=== PATIENT | female | born 1930 | race Caucasian/White ===

== ENCOUNTER 2017-01-06 09:51 | Emergency (ER) | payer MEDICARE, OTHER ==
[~2017-01-06] VITALS: Ht 170.2 cm; Wt 60.5 kg
[~2017-01-06 09:51] MED LIST: ACET-171 PO; ASCO500T8 PO; ASPI-973 PO; Atorvastatin PO; CARV12.5 PO; CYCL1DRO BOTH_EYES; DABI150C PO; DIGO125T73 PO; FERR324T2 PO; FURO40TA4 PO; GLPZ5T PO; LISI-567 PO; LOPE2TAB7 PO; MAGN400T4 PO; METF500T4 PO; OMEP-113 PO; SPIR25TA3 PO
[2017-01-06 09:57] VITALS: BP 143/50; PULSE 85; RESP 18; O2SAT 93
--- NOTE | 2017-01-06 09:59 | ED.REPORT ---
HPI-Trauma Minor / Fall Date of Service Jan 06, 2017 ED Provider: MD Costa This is an 86 year old female with a history of a-fib, on Pradaxa, CHF, COPD, DM , MO, HTN, s/p cardiac stent placement x2 presenting to the emergency department via EMS from [facility] due to GLF that occurred just prior to arrival. Staff report increased falls and decreased mobility recently. Today pt had a fall but was unable to ambulate due to weakness. Pt states she was on the floor for 20 minutes, states, "I don't have a lot of energy in my legs." Also reports R taylor pain. Denies headache, change LOC, dizziness, lightheadedness, abdominal pain, nausea, vomiting, dysuria, constipation or diarrhea. [employer] Worker: Dr. Santana. PCP: Dr. Magallanes. On further discussion with family members, pt has been increasingly more confused with decreased mobility in the last few months. She had one fall yesterday, these recent falls are abnormal. Son states pt was very weak this morning. Pt last ambulated at baseline 4 days ago. Nursing Notes Stated Complaint: GLF WEAKNESS Chief Complaint: Multiple Trauma/Fall Nursing Notes Reviewed: Yes Allergies: Coded Allergies: lorazepam (Verified Allergy, Intermediate, CONFUSION, 07/26/16) meperidine HCl (Verified Adverse Reaction, Unknown, Hallucinations, ) Scheduled Ascorbic Acid (Vitamin C) 500 Mg Capsule.er 500 MG PO DAILY Aspirin (Aspirin) 81 Mg Tablet 81 MG PO DAILY Atorvastatin Calcium (Atorvastatin Calcium) 40 Mg Tablet 40 MG PO DAILY Carvedilol (Carvedilol) 12.5 Mg Tablet 6.25 MG PO BID Cephalexin (Cephalexin) 500 Mg Tablet 500 MG PO TID Cyclosporine (Restasis) 1 Each Droperette 1 DROP BOTH_EYES BID Dabigatran Etexilate Mesylate (Pradaxa) 150 Mg Capsule 150 MG PO BID Digoxin (Digoxin) 125 Mcg Tablet 125 MCG PO DAILY Ferrous Sulfate (Ferrous Sulfate) 324 Mg Tablet.dr 324 MG PO DAILYWD Furosemide (Furosemide) 40 Mg Tablet 20 MG PO DAILY Glipizide (Glipizide) 5 Mg Tablet 5 MG PO BID Lisinopril (Lisinopril) 20 Mg Tablet 20 MG PO BID Magnesium Oxide (Magnesium Oxide) 400 Mg Tablet 800 MG PO BID Metformin (Metformin) 500 Mg Tablet 1,000 TABLET PO BID Omeprazole (Omeprazole) 20 Mg Capsule.dr 20 MG PO BID Spironolactone (Spironolactone) 25 Mg Tablet 12.5 MG PO DAILY Scheduled PRN Acetaminophen (Acetaminophen) 500 Mg Tablet 500-1,000 MG PO Q6 PRN PRN For Pain Loperamide HCl (Anti-Diarrheal) 2 Mg Tablet 2-4 MG PO PRN PRN PRN For Diarrhea or Loose Stool General Time Seen by MD: 09:59 Chief Complaint Fall Hx Obtained From: Patient Arrived By: Ambulance Symptom Duration: Since onset Severity: Current: Mild Pertinent Negative: Pt denies other symptoms Recent Healthcare: No recent doctor visit, No recent hospitalization Similar Sx Previous: No Risk Factors Head CT Imaging Patient Presents WITHOUT: Loss of Conciousness Past Medical History Past Medical History Afib with RVR CHF COPD Diabetes MO (~1999s) Reports: COPD, Congestive heart failure, Diabetes mellitus Past Surgical History Stents (x2) Smoking History Former Smoker Social History Alcohol Use: "Social" Drug Use: Denies drug use Ambulatory Status Wheelchair Review of Systems Constitutional: Denies: Chills, Fever Skin: Denies Diaphoresis Neurologic: Reports: Problem walking, Weakness, Denies: Change LOC, Confusion, Dizziness, Headache, Lightheaded, Numbness Complete sys rev & neg: except as marked. Physical Exam Initial Vital Signs Vital Signs (First) Date Time Temp Pulse Resp B/P Pulse Ox O2 Delivery O2 Flow Rate FiO2 01/06/17 09:57 36 85 18 143/50 93 Room Air 01/06/17 12:20 1 - Initial VS: Reviewed Head / Eyes: Atraumatic, Normocephalic, PERRL ENT: Mucous membranes moist, Conjunctiva normal, No scleral icterus Respiratory: Breath sounds normal, Clear to auscultation, No respiratory distress Abdomen / GI: Soft, Non-tender, No guarding, No rebound, No distention Skin: Warm, Dry, No cyanosis Neurologic: Alert, Oriented, Nonfocal Psychiatric: Mood/affect normal, Behavior normal, Normal thought content General/Constitutional: Awake Neck: Atraumatic, Supple, Full range of motion, No swelling, Non-tender, No midline vertebral tend Cardiovascular: Heart rate NL, Heart sounds NL, No gallop, No murmurs, No rubs Heart Rate / Rhythm: Positive: Irregular rhythm Lower Extremity / Pelvis / MS: Full range of motion, No deformity, Neurologic intact Superficial abrasion R lower leg, no purulence, no cellulitis. Hips FROM, non-tender Interpretation & Diagnostics Lab Results Interpretation Result Diagram: 01/06/17 0957 01/06/17 0957 Test 01/06/17 09:57 01/06/17 11:49 White Blood Count 9.1th/mm3 (3.8-10.1) Red Blood Count 4.14mil/mm3 (3.90-5.20) Hemoglobin 13.1g/dL (12.0-15.6) Hematocrit 37.9% (35.0-46.0) Mean Corpuscular Volume 91.5fL (81-100) Mean Corpuscular Hemoglobin 31.6pg (27.0-35.0) Mean Corpuscular Hemoglobin Concent 34.6% (32.0-37.0) Red Cell Distribution Width 12.1% (12.3-15.4) Platelet Count 222bil/L (150-400) Neutrophils (%) (Auto) 86.2% (40-74) Lymphocytes (%) (Auto) 5.1% (14-46) Monocytes (%) (Auto) 7.4% (4-12) Eosinophils (%) (Auto) 0.9% (0-5) Basophils (%) (Auto) 0.1% (0-3) Prothrombin Time 10.7sec (8.1-12.5) Prothromb Time International Ratio 1.00ratio Activated Partial Thromboplast Time 21.0sec (22.8-33.0) Sodium Level 137mEq/L (134-144) Potassium Level 4.3mEq/L (3.5-5.2) Chloride Level 95mEq/L (97-108) Carbon Dioxide Level 28mmol/L (18-29) Blood Urea Nitrogen 14mg/dL (8-27) Creatinine 0.61mg/dL (0.57-1.00) Estimat Glomerular Filtration Rate 133mL/min (>59) Glucose Level 285mg/dL (60-99) Calcium Level 9.5mg/dL (8.5-10.1) Total Bilirubin 0.7mg/dL (0.0-1.2) Aspartate Amino Transf (AST/SGOT) 22U/L (0-50) Alanine Aminotransferase (ALT/SGPT) 17U/L (0-32) Alkaline Phosphatase 53U/L (25-165) Total Protein 7.3g/dL (6.4-8.4) Albumin 4.0g/dL (3.4-5.0) Urine Color Straw (YELLOW) Urine Appearance Hazy (CLEAR,HAZY) Urine pH 5.0 (5.0-8.0) Urine Specific Raven 1.010 (1.003-1.035) Urine Protein Negativemg/dL (NEG,TRACE) Urine Glucose (UA) Negativemg/dL (NEGATIVE) Urine Ketones Negativemg/dL (NEGATIVE) Urine Occult Blood Negative (NEGATIVE) Urine Nitrite Negative (NEGATIVE) Urine Bilirubin Negative (NEGATIVE) Urine Urobilinogen Normalmg/dL (NORMAL) Urine Leukocyte Esterase Negative (NEGATIVE) Urine RBC 0-2/hpf (0-2) Urine WBC 0-5/hpf (0-5) Urine Epithelial Cells Occasional/hpf (NONE-MOD) Urine Crystals Amorphous urates (NONE Urine Bacteria None/hpf (NONE-FEW) Urine Hyaline Casts None/lpf (NONE) Urine Granular Casts None seen (NONE SEEN) Urine Waxy Casts None seen (NONE SEEN) Urine Red Blood Cell Casts None seen (NONE SEEN) Urine White Blood Cell Casts None seen (NONE SEEN) Urine Mucus None seen (None Seen) Urine Trichomonas None seen (NONE SEEN) Urine Yeast None (NONE SEEN) Urinalysis Comment None ECG Interpretation ECG Interpretation: Atrial fibrillation at rate of 69 LBBB No change from prior on 07/25/16 Time: 11:23 Interpreted by: ED physician X-Ray Chest Interpretation Interpretation / Wet Read by: Interpret - Radiologist NL X-Ray Chest Findings: No acute disease X-Ray Interpretation Xray Interpretation: Negative Study Performed: Tibia Fibula Interpretation / Wet Read by: Interpret - Radiologist CT Head Interpretation Interpretation / Wet Read by: Interpret - Radiologist NL CT Head Findings: No acute disease Re-Eval/Medical Decision Med Decision/Clinical Course 76-year-old female history of atrial fibrillation on pradaxa, CHF, COPD, diabetes presenting with weakness. Per family she has been weak for months worse the last couple days. Two falls reportedly due to weakness. No other associated symptoms. Vital signs stable. Urine is negative. Chest x-rays negative. Labs are stable other than elevated blood sugar. She has a right lower extremity wounds that she is on Keflex for and this appears to be healing well with no evidence of abscess or cellulitis at this time. I had a long conversation with family and they were hoping she would be admitted to the hospital. I did discuss with the hospitalist and the plan was to admit patient as observation status. They did not want observation status and requests to go home. Social work was consulted and set them up with home health and home PT. Return precautions given. Re-Evaluation/Progress : Time of Eval: 12:46 Re-Evaluation/Progress Note: Discussed pt care with family members now present in the room, plan for discharge, all questions addressed. Counseled Regarding: Diagnosis, Lab results, Need for follow-up, When/why to return to ED Discharge & Departure Impression: Primary Impression: Weakness Additional Impression: Diabetes mellitus Diabetes mellitus type: type 2 Diabetes mellitus complication status: with unspecified complications Qualified Code: E11.8 - Type 2 diabetes mellitus with unspecified complications Disposition: Home Discharge Condition All VS Reviewed: Yes Condition: Stable Patient Instructions: Fall Prevention for Older Adults (GEN) Additional Instructions: Your labs and imaging studies were reassuring today. Follow up with the home health and home physical therapy resources provided by the medical social consultant today. Return to the emergency department for any new or worsening symptoms such as fever, chills, dizziness or lightheadedness. Referrals: Eamon Magallanes MD (PCP) Scribe Attestation Portions of this note were transcribed by Carlos Patino. I, Dr. Skelton personally performed the history, physical exam and medical decision-making; I reviewed and confirmed the accuracy of the information in the transcribed note. Signed by: nitza Bridges. 01/06/2017, 15:00. Kenneth Skelton MD Jan 06, 2017 09:59 CARLOS PATINO Jan 06, 2017 10:08
[2017-01-06 10:20] LABS: BASOPHILS % (AUTO) 0.1 % (0-3); EOSINOPHILS % (AUTO) 0.9 % (0-5); MONOCYTES % (AUTO) 7.4 % (4-12); Mean Corpuscular Hemoglobin 31.6 pg (27.0-35.0); Mean Corpuscular Volume 91.5 fL (81-100); NEUTROPHILS % (AUTO) 86.2 % (40-74); Platelet Count 222 bil/L (150-400)
[2017-01-06] MEDS ORDERED: 0.9% Sodium Chloride 500 ML IV ONE (11:40)
[2017-01-06 12:19] LABS: APPEARANCE,URINE HAZY (CLEAR,HAZY); COLOR,URINE STRAW (YELLOW); OCCULT BLOOD,URINE NEGATIVE (NEGATIVE); UROBILINOGEN,URINE NORMAL (NORMAL)
[2017-01-06 12:20] VITALS: BP 169/58; PULSE 66; RESP 20; O2SAT 97
[2017-01-06] MEDS ORDERED: OMEP20CA11 PO (12:33)
[2017-01-06] MEDS ORDERED: CEPH500T PO (12:33)
[2017-01-06] MEDS ORDERED: ASCO500C6 PO (12:33)
[2017-01-06] MEDS ORDERED: CARV12.52 PO (12:33)
[2017-01-06] MEDS ORDERED: ATOR40TA69 PO (12:33)
[2017-01-06] MEDS ORDERED: CYCL1DRO BOTH_EYES (12:33)
--- NOTE | 2017-01-06 14:16 | NUR ---
Spoke with Blas at [facility] and let him know patient will need a start date tomorrow, patient is needing PT,OT,RN and Bath aide. Gave access Addendum: 01/06/17 at 1420 by GOMEZ LEVY CM Blas confirmed they can open tomorrow morning. Jailene will be in ED [employer] office. Updated [employer]
[2017-01-06] MEDS ORDERED: Heparin 5,000 Unit/mL Inj SUBQ SCH (20:30)
--- NOTE | 2017-01-12 14:40 | DRSVH ---
PROCEDURE: CT BRAIN WITHOUT CONTRAST ([id number]) INDICATIONS: fall on pradaxa TECHNIQUE: Noncontrast 4.5 mm thick angled axial sections acquired from the foramen magnum to the vertex, with c oronal reformats. COMPARISON: [facility], CT, CT BRAIN WO CON, 07/25/2016, 20:29. FINDINGS: Image quality: Excellent. CSF spaces: Basal cisterns are patent. Left posterior fossa arachnoid cyst recently now mass effect on the left cerebral hemisphere stable compared to prior examination.. Diffuse prominence of the vent ricles out of proportion to the sulci noted. Brain: No intracranial bleeds or masses. There is cerebral volume loss for age, with resultant vent ricular and sulcal prominence. There are periventricular and deep white matter chronic small vessel ischemic changes. There is intracranial internal carotid artery and vertebral artery atherosclerosis . Skull and face: Calvarium and visualized facial bones appear intact, without suspicious lesions. 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 Sinuses: Mild mucosal thickening noted in the maxillary sinuses bilaterally. The mastoids are clear. IMPRESSION: 1. No acute intracranial disease process. 2. Ventriculomegaly stable compared to 07/25/2016. Cardiomegaly related to central volume loss versus normal pressure hydrocephalus. Please correlate with clinical data. Dictated by: Rekha Severino MD, PhD on 01/06/2017 at 10:52 Approved by: Rekha Severino MD, PhD on 01/06/2017 at 10:56
--- NOTE | 2017-01-12 14:44 | DRSVH ---
PROCEDURE: X-RAY CHEST ONE VIEW, PORTABLE ([id number]) INDICATIONS: cough TECHNIQUE: One view of the chest was acquired. COMPARISON: [facility], CR, XR CHEST 1VW (PORTABLE), 07/25/2016, 18:23. FINDINGS: Surgical changes and devices: None. Lungs and pleura: No pleural effusions or pneumothorax. Lungs are clear. Mediastinum: Mediastinal contours appear normal. Heart size is normal. Bones and chest wall: No suspicious bony lesions. Overlying soft tissues appear unremarkable. IMPRESSION: No acute cardiopulmonary disease process. Dictated by: Rekha Severino MD, PhD on 01/06/2017 at 10:57 Approved by: Rekha Severino MD, PhD on 01/06/2017 at 10:57
--- NOTE | 2017-01-26 14:46 | DRSVH ---
PROCEDURE: X-RAY RIGHT TIBIA/FIBULA, TWO VIEWS ([id number]) INDICATIONS: RIGHT LEG PAIN TECHNIQUE: 2 views of the tibia and fibula were acquired. COMPARISON: None. FINDINGS: Bones: No fractures or dislocations. No suspicious bony lesions. 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 Soft tissues: No suspicious masses. Atherosclerotic calcifications noted. IMPRESSION: No fracture. No acute osseous lesion. If symptoms and/or clinical suspicion for patholog y persists, further assessment with repeat radiographs or advanced imaging (e.g. CT, MRI or bone scan ) may be helpful for further assessment. Dictated by: Rekha Severino MD, PhD on 01/06/2017 at 10:58 Approved by: Rekha Severino MD, PhD on 01/06/2017 at 10:59
== END 2017-01-06 14:38 | disposition home or self-care (01) ==
LOC: SED 09:51 → EDBD 09:51 → MOC 13:34 → UNDOADMOB 13:34
DX: R53.1 Weakness (principal); E11.9 Type 2 diabetes mellitus without complications; M79.604 Pain in right leg; W18.30XA Fall on same level, unspecified, initial encounter; Y92.129 Unspecified place in nursing home as the place of occurrence of the external cause; Y93.89 Activity, other specified; Y99.8 Other external cause status; R41.0 Disorientation, unspecified; I48.91 Unspecified atrial fibrillation; I50.9 Heart failure, unspecified; J44.9 Chronic obstructive pulmonary disease, unspecified; I25.2 Old myocardial infarction; I10 Essential (primary) hypertension; Z95.818 Presence of other cardiac implants and grafts; Z87.891 Personal history of nicotine dependence; Z91.81 History of falling; Z74.09 Other reduced mobility; Z79.82 Long term (current) use of aspirin; Z79.84 Long term (current) use of oral hypoglycemic drugs; Z79.01 Long term (current) use of anticoagulants; Z88.8 Allergy status to other drugs, medicaments and biological substances; Z88.5 Allergy status to narcotic agent
CPT/HCPCS: 36415; 70450; 71010; 73590; 80053; 81001; 82948; 85025; 85610; 85730; 93005; 99285; J7040

== ENCOUNTER 2017-01-25 03:58 | Inpatient (IN) | payer MEDICARE, OTHER ==
[2017-01-25] VITALS (11 sets, daily range): BP systolic 109–207; BP diastolic 57–97; PULSE 67–112; RESP 16–28; O2SAT 88–98
[~2017-01-25] VITALS: Ht 170.2 cm; Wt 61.3 kg
[~2017-01-25 03:58] MED LIST changes: +ASCO500C6 PO; -ASCO500T8 PO; +ATOR40TA69 PO; -Atorvastatin PO; -CARV12.5 PO; +CARV12.52 PO; +CEPH500T PO; -OMEP-113 PO; +OMEP20CA11 PO
[2017-01-25] MEDS ORDERED: Albuterol-Ipratropium 3 mL Inhalation Solution NEB ONE (04:10)
[2017-01-25] MEDS ORDERED: Albuterol 0.5% (5mg/mL) 20 mL Inhalation Solution ONE (04:15)
[2017-01-25] MEDS ORDERED: Albuterol 2.5 mg/3 mL Inhalation Solution NEB ONE (04:15)
[2017-01-25] MEDS ORDERED: Furosemide 10 mg/mL 4 mL Inj IVPUSH ONE (04:30)
--- NOTE | 2017-01-25 04:33 | ED.REPORT ---
HPI-General Illness Date of Service Jan 25, 2017 ED Provider: Irineo Anderson MD History of Present Illness: Anastasia Gaytan is an 86 year old woman with a PMH of DM2, COPD, CHF, Afib on pradaxa and Takotsubo cardiomyopathy who presents with a 1 day history of SOB. Her daughter relates that since having a UTI 3 and a fall 3 weeks ago the patient has never quite recovered. She has been experiencing confusion which is a new symptom for her. The patient relates that earlier this evening she began to become acutely short of breath. EMS reports the patient was hypertensive in the 180/120 range with Afib in the 100s, and satting in the upper 80s on room air. Saturation corrected to the high 90s with supplemental O2. Nursing Notes Stated Complaint: SHORT OF BREATH Chief Complaint: Respiratory Distress Nursing Notes Reviewed: Yes Allergies: Coded Allergies: lorazepam (Verified Allergy, Intermediate, CONFUSION, 01/25/17) meperidine HCl (Verified Adverse Reaction, Unknown, Hallucinations, ) Scheduled Ascorbic Acid (Vitamin C) 500 Mg Capsule.er 500 MG PO DAILY Aspirin (Aspirin) 81 Mg Tablet 81 MG PO DAILY Atorvastatin Calcium (Atorvastatin Calcium) 40 Mg Tablet 40 MG PO DAILY Carvedilol (Carvedilol) 12.5 Mg Tablet 6.25 MG PO BID Cephalexin (Cephalexin) 500 Mg Tablet 500 MG PO TID Cyclosporine (Restasis) 1 Each Droperette 1 DROP BOTH_EYES BID Dabigatran Etexilate Mesylate (Pradaxa) 150 Mg Capsule 150 MG PO BID Digoxin (Digoxin) 125 Mcg Tablet 125 MCG PO DAILY Ferrous Sulfate (Ferrous Sulfate) 324 Mg Tablet.dr 324 MG PO DAILYWD Furosemide (Furosemide) 40 Mg Tablet 20 MG PO DAILY Glipizide (Glipizide) 5 Mg Tablet 5 MG PO BID Lisinopril (Lisinopril) 20 Mg Tablet 20 MG PO BID Magnesium Oxide (Magnesium Oxide) 400 Mg Tablet 800 MG PO BID Metformin (Metformin) 500 Mg Tablet 1,000 TABLET PO BID Omeprazole (Omeprazole) 20 Mg Capsule.dr 20 MG PO BID Spironolactone (Spironolactone) 25 Mg Tablet 12.5 MG PO DAILY Scheduled PRN Acetaminophen (Acetaminophen) 500 Mg Tablet 500-1,000 MG PO Q6 PRN PRN For Pain Loperamide HCl (Anti-Diarrheal) 2 Mg Tablet 2-4 MG PO PRN PRN PRN For Diarrhea or Loose Stool General Time Seen by MD: 04:25 Chief Complaint Breathing problem Hx Obtained From: Patient, Daughter Onset Occurred: 1 - 4 hours ago Symptom Duration: Since onset Severity: Current: No pain currently Severity: Maximum: No pain Recent Healthcare: Recent hospitalization Similar Sx Previous: Yes Past Medical History Past Medical History Afib with RVR CHF COPD Diabetes MO (~1999s) Reports: COPD, Congestive heart failure, Diabetes mellitus Past Surgical History Stents (x2) Smoking History Former Smoker Social History Alcohol Use: "Social" Drug Use: Denies drug use Ambulatory Status Wheelchair Review of Systems Full Review of Systems Respiratory: Reports: Shortness of breath, Wheezing Complete sys rev & neg: except as marked. Physical Exam Gen: A/O x3 pleasant elderly woman in Moderate acute distress secondary to SOB Neck: JVD to angle of mandible BL, supple, full ROM HEENT: PERRL, EOMI, mucous membranes slightly dry CV: irregularly irregular with rate approx 100, no murmurs rubs or gallops Resp: Diffuse expiratory wheezing, crackles in left lung base, distant breath sounds Extr: No cyanosis clubbing or edema Neuro: CN 2-12 grossly intact, no focal neurologic deficit. Vital Signs Vital Signs Date Time Temp Pulse Resp B/P Pulse Ox O2 Delivery O2 Flow Rate FiO2 01/25/17 05:08 112 26 207/88 97 Nasal Cannula 2.5 01/25/17 04:22 82 24 98 Nasal Cannula 2 01/25/17 04:09 36.8 109 28 166/97 88 Room Air Initial VS: Reviewed, Vital signs abnormal Interpretation & Diagnostics Lab Results Interpretation Result Diagram: 01/25/17 0440 01/25/17 0440 Test 01/25/17 04:40 01/25/17 05:00 White Blood Count 14.3th/mm3 (3.8-10.1) Red Blood Count 3.95mil/mm3 (3.90-5.20) Hemoglobin 12.2g/dL (12.0-15.6) Hematocrit 36.7% (35.0-46.0) Mean Corpuscular Volume 92.9fL (81-100) Mean Corpuscular Hemoglobin 30.9pg (27.0-35.0) Mean Corpuscular Hemoglobin Concent 33.2% (32.0-37.0) Red Cell Distribution Width 11.9% (12.3-15.4) Platelet Count 297bil/L (150-400) Neutrophils (%) (Auto) 85.4% (40-74) Lymphocytes (%) (Auto) 4.1% (14-46) Monocytes (%) (Auto) 9.6% (4-12) Eosinophils (%) (Auto) 0.5% (0-5) Basophils (%) (Auto) 0.1% (0-3) D-Dimer < 0.5mg/L (<0.50) Sodium Level 138mEq/L (134-144) Potassium Level 5.6mEq/L (3.5-5.2) Chloride Level 94mEq/L (97-108) Carbon Dioxide Level 27mmol/L (18-29) Blood Urea Nitrogen 19mg/dL (8-27) Creatinine 0.48mg/dL (0.57-1.00) Estimat Glomerular Filtration Rate 175mL/min (>59) Glucose Level 255mg/dL (60-99) Calcium Level 9.1mg/dL (8.5-10.1) Total Bilirubin 0.6mg/dL (0.0-1.2) Aspartate Amino Transf (AST/SGOT) 25U/L (0-50) Alanine Aminotransferase (ALT/SGPT) 13U/L (0-32) Alkaline Phosphatase 54U/L (25-165) Total Creatine Kinase 36U/L (21-215) Creatine Kinase MB 1.4ng/mL (0.0-5.3) Creatine Kinase MB % % (0.0-5.0) Troponin T 0.010ug/L (0.0-0.011) Pro-B-Type Natriuretic Peptide 1517pg/mL (0-738) Total Protein 7.4g/dL (6.4-8.4) Albumin 3.6g/dL (3.4-5.0) Lab Results Interpretation: Elevated white blood count, mildly elevated potassium, elevated nonfasting glucose X-Ray Chest Interpretation Interpretation / Wet Read by: Wet read ED physician Infiltrate / Pneumothorax: Infiltrate L lower lung CHF / Pleural Effusion: CHF present Re-Eval/Medical Decision Med Decision/Clinical Course Patient with DM2 and significant pulmonary and cardiovascular history presenting with SOB and diaphoresis. CXR without radiologist read, appears to have a LLL infiltrate and findings consistent with CHF with concurrent JVD to angle of mandible. Given the patient's co-morbid conditions and likely diagnosis of pneumonia this patient would benefit from admission. CBC reveals leukocytosis with Neutrophil predominance, given retirement residency the patient was started on HCAP antibiotics Vanco, Zosyn, and Levaquin; Blood and sputum cultures collected prior to administration. Patient was discussed with admitting hospitalist who agreed with admission. Potassium returned elevated so patient was given Calcium gluconate, and insulin without dextrose given her elevated BG at 255. Counseled Regarding: Diagnosis, Lab results, Need for admission Discharge & Departure Primary Impression: Pneumonia Pneumonia type: due to unspecified organism Laterality: left Lung location : lower lobe of lung Qualified Code: J18.9 - Pneumonia, unspecified organism Additional Impression: CHF exacerbation Disposition: ADMITTED TO HOSPITAL Discharge Condition All VS Reviewed: Yes Condition: Stable Referrals: Eamon Magallanes MD (PCP) Attending Statement The patient was seen and examined together with Dr. Ivan Adam and I agree with the history, exam and plan as outlined in the note above. copies to: Eamon Magallanes MD, David E DO Jan 25, 2017 04:33 Irineo Anderson MD Jan 25, 2017 06:21
[2017-01-25 04:47] LABS: BASOPHILS % (AUTO) 0.1 % (0-3); EOSINOPHILS % (AUTO) 0.5 % (0-5); MONOCYTES % (AUTO) 9.6 % (4-12); Mean Corpuscular Hemoglobin 30.9 pg (27.0-35.0); Mean Corpuscular Volume 92.9 fL (81-100); NEUTROPHILS % (AUTO) 85.4 % (40-74); Platelet Count 297 bil/L (150-400)
[2017-01-25] MEDS ORDERED: levoFLOXacin Inj 750 MG in IV Premix 1 EACH IV ONE (05:40)
[2017-01-25] MEDS ORDERED: Vancomycin Dose per Pharmacist XX ONE (05:40)
[2017-01-25 05:46] LABS: TROPONIN T 0.01 ug/L (0.0-0.011)
[2017-01-25 05:51] LABS: Creatine Kinase 36 U/L (21-215)
[2017-01-25] MEDS: Piperacillin-Tazo 3.375 Gm Inj 3.375 GM in Dextrose 5% Minibag Plus 50 ML IV ONE ×2 (06:03→06:19)
[2017-01-25] MEDS ORDERED: Calcium GLUCO 10% (mEq) Inj 4.65 MEQ in Dextrose 5% 50 ML IV ONE (06:05)
[2017-01-25] MEDS ORDERED: Vancomycin Inj 1,000 MG in IV Premix 1 EACH IV ONE (06:10)
[2017-01-25] MEDS: Insulin Human NPH 100 Unit/mL 3 mL Inj SUBQ ONE ×2 (06:15→06:18)
[2017-01-25 06:41] LABS: APPEARANCE,URINE CLEAR (CLEAR,HAZY); COLOR,URINE DARK YELLOW (YELLOW); OCCULT BLOOD,URINE NEGATIVE (NEGATIVE); PH,URINE 5.5 (5.0-8.0); UROBILINOGEN,URINE NORMAL (NORMAL)
[2017-01-25] MEDS ORDERED: Senna-Docusate 8.6-50 mg Tablet PO PRN (08:00)
[2017-01-25] MEDS ORDERED: Ondansetron 2 mg/mL 2 mL Inj IVPUSH PRN (08:00)
[2017-01-25] MEDS ORDERED: CARV12.52 PO (08:00)
[2017-01-25] MEDS ORDERED: Polyethylene Glycol (PEG) 17 Gm Powder PO PRN (08:00)
[2017-01-25] MEDS ORDERED: Alum-Mag Hydrox-Simeth 30 mL Suspension PO PRN (08:00)
[2017-01-25] MEDS ORDERED: FURO-128 PO (08:00)
[2017-01-25] MEDS: Sodium Chloride LOK Flush 10 mL Syringe IVFLUSH SCH ×3 (08:23→22:25)
[2017-01-25 08:30] LABS: Magnesium 1.9 mg/dL (1.6-2.6)
--- NOTE | 2017-01-25 09:29 | DRSVH ---
PROCEDURE: X-RAY CHEST ONE VIEW, PORTABLE ([id number]) INDICATIONS: short of breath TECHNIQUE: One view of the chest was acquired. COMPARISON: [facility], CR, XR CHEST 1VW (PORTABLE), 01/06/2017, 10:46. FINDINGS: Surgical changes and devices: None. Lungs and pleura: No pleural effusions or pneumothorax. Interstitium is prominent bilaterally. Mediastinum: Mediastinal contours appear normal. Heart size is normal. Bones and chest wall: No suspicious bony lesions. Overlying soft tissues appear unremarkable. IMPRESSION: Interstitium is prominent and mild edema versus atypical infection is suspected. Dictated by: Chuckie Kumar RR Interpreted: Stephan Rodriguez MD on 01/25/2017 at 9:28 Transcribed by: ADRIENNE on 01/25/2017 at 9:28 Approved by: Stephan Rodriguez M.D. on 01/25/2017 at 17:07
[2017-01-25] MEDS: Pt Own Med->RESTASIS BOTH_EYES SCH ×2 (10:10→20:30)
[2017-01-25] MEDS: Ascorbic Acid 500 mg Tablet PO SCH (10:42)
[2017-01-25] MEDS: Dabigatran 150 mg Capsule PO SCH ×2 (12:28→22:14)
--- NOTE | 2017-01-25 12:29 | NUR ---
Social work note - Initial Assessment Anastasia Gaytan is a 86 yr old admitted for pneumonia, CHF. EMR reviewed: Pt has Medicare and [employer] insurance. PCP is Eamon Magallanes. Readmit score not available. Pt has DPOA - PATIENT REGISTRATION CLERK asked Pt's daughter to bring into the hospital. Family will also work on a POLST form. See attached CM initial assessment. PATIENT REGISTRATION CLERK met with pt - pt's daughter also in the room. Introduced D/C planning and explained SW role. Pt lives at [facility] assisted living. She uses a power chair, hospital bed, has O2 for NOC and has assistance with medications at facility. Pt is currently open with [facility] for RN PT OT. Family would like to have pt return to [facility] but is open to SNF for rehab if recommended by PT/MD. Pt has been to [facility] in the past and would prefer to return to [facility] if needed. PATIENT REGISTRATION CLERK updated [facility] on admission and provided access. PATIENT REGISTRATION CLERK will ask MD for PT referral when appropriate. Plan: Developing - Likely return to [facility] with resume [facility] for RN PT OT. PARAS [place] Addendum: 01/25/17 at 1238 by JASKARAN LYNN SS Amended: Links added.
[2017-01-25] MEDS ORDERED: Glucose 40% Oral Gel 15 Gm Tube PO PRN (12:35)
[2017-01-25] MEDS: Vancomycin Dose per Pharmacist XX SCH (12:40)
--- NOTE | 2017-01-25 12:46 | PCM.HPMED ---
Subjective Date of Service Jan 25, 2017 Primary Provider: Admitting Physician: Adriana Damon DO Primary Care Physician: Eamon Magallanes MD Attending Physician: Adriana Damon DO Chief Complaint: Shortness of breath History of Present Illness: Anastasia Gaytan is an 86 year old female with history of non-insulin using controlled diabetes mellitus, atrial fibrillation with rate control therapy on Pradaxa, heart failure with preserved EF, coronary artery disease, as well as stress induced cardiomyopathy, who presented to [facility] ED with complaint of shortness of breath that worsened over the last few days. The patient is accompanied by her daughter Funmi and son Karla who provide much of the history for the patient. The patient has been noting worsening shortness of breath that is exacerbated by laying flat. There is some concern that the patient may skip her medications at times when she is not reminded to take them. The patient denies any fevers, chills, cough, chest pain, weakness, malaise, arthralgia, myalgias or lower extremity edema. No recent falls, dizziness, or LOC. Her main complaint is ongoing urinary incontinence to the point that she needs to use 3 Poise pads at a time. She was previously treated for UTIs due to her urinary incontinence however she states that the incontinence is not changed. She normally gets around with the use of a scooter but does use her walker on rare occasions and has a very difficult time raising her feet of the floor. Her daughter also notes periods of confusion that seem to come and go. At her best the patient seems to be mostly lucid per the daughter. From review of past visits the patient did have several CTs of brain that noted dilated ventricles with normal pressure hydrocephalus as a differential but without an LP preformed. The patient's regular verse writer is Dr. Santana and the patient has an appointment with him in two days. In the ED, T36.8, P109, R28, BP166/97, 87% on room air; WBC 14.3 with 85.4% neut. Wet read of CXR by ED physician was concerned for possible left lower lobe pneumonia and the patient was started on vancomycin, Zosyn and Levaquin due to possibility of HCAP. She was also given one dose of 40 mg IV Lasix and states that her breathing is already back to it's normal state. Review of Systems: A comprehensive review of systems was conducted with the patient and found to be negative except as above in the History of Present Illness. Allergies Coded Allergies: lorazepam (Verified Allergy, Intermediate, CONFUSION, 01/25/17) meperidine HCl (Verified Adverse Reaction, Unknown, Hallucinations, ) Home Medications ([Atorvastatin]) 10 MG/1 TAB TABLET 40 MG PO HS Prescribed by: KARLA MARSHALL MD Ascorbic Acid (Vitamin C) 500 Mg Tablet 500 MG PO DAILYWD (Reported) Aspirin (Aspirin) 81 Mg Tablet 81 MG PO DAILY (Reported) Carvedilol (Coreg) 12.5 Mg Tablet 12.5 MG PO BID Prescribed by: KARLA MARSHALL MD Cyclosporine (Restasis) 1 Each Droperette 1 EACH BOTH_EYES BID (Reported) Dabigatran Etexilate Mesylate (Pradaxa) 150 Mg Capsule 150 MG PO BID (Reported) Digoxin (Digoxin) 125 Mcg Tablet 125 MCG PO DAILY (Reported) Ferrous Sulfate (Ferrous Sulfate) 324 Mg Tablet.dr 324 MG PO DAILYWD (Reported) Furosemide (Furosemide) 40 Mg Tablet 40 MG PO DAILY (Reported) Glipizide (Glipizide) 5 Mg Tablet 5 MG PO BID (Reported) Lisinopril (Lisinopril) 20 Mg Tablet 20 MG PO BID (Reported) Magnesium Oxide (Magnesium Oxide) 400 Mg Tablet 400 MG PO BID (Reported) Metformin (Metformin) 500 Mg Tablet 1,000 TABLET PO BID (Reported) Omeprazole Magnesium (Omeprazole) 20 Mg Capsule.dr 20 MG PO BID (Reported) Spironolactone (Spironolactone) 25 Mg Tablet 12.5 MG PO DAILY (Reported) As needed Acetaminophen (Acetaminophen) 500 Mg Tablet 500-1,000 MG PO Q6 PRN PRN For Pain (Reported) Loperamide HCl (Anti-Diarrheal) 2 Mg Tablet 2-4 MG PO PRN PRN PRN For Diarrhea or Loose Stool (Reported) PMH Non-insulin using diabetes mellitus Atrial fibrillation, chronic Stress induced cardiomyopathy CHF, diastolic CAD Anemia IBS GERD 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; stenting and brachytherapy to prox LCx and OM1 and PTCA of OM2 in 2002; PTCA to LCx stent in 2014 Surgical History Umbilical hernia repair TAHBSO Appendectomy BL cataract removal and lens placement R Knee Multiple cardiac stents Family History Parents ; health conditions unknown Son: sleep apnea Daughter: healthy Social History Hx Alcohol Use: No Hx Substance Use: No Hx Tobacco Use: Yes (smoked for 40 years--quit in 1999) Smoking Status: Former Smoker Exam Vital Signs Vital Sign - Last Date Time Temp Pulse Resp B/P Pulse Ox O2 Delivery O2 Flow Rate FiO2 01/25/17 07:15 37.2 97 18 154/73 95 Nasal Cannula 2.00 Intake and Output 01/24/17 01/24/17 01/25/17 Cumulative From/Thru 15:00 23:00 07:00 01/25/17 04:09 - 01/25/17 06:32 Output Total 600 ml 600 ml Balance -600 ml -600 ml Output Urine Total 600 ml 600 ml Exam General: No acute distress, well-developed, well-nourished, appropriately interactive elderly lady in a hospital bed with nasal cannula on. HEENT: Normocephalic, atraumatic. External ears without defect. Pupils equal, round, and reactive to light and accommodation. Anicteric sclerae, moist conjunctivae, and no lid lag. Oropharynx free of erythema and cobble stoning with moist mucosa. Neck: Supple with full range of motion. No jugular venous distension. No bruits. No lymphadenopathy or thyromegaly. Cardiovascular: Irregularly irregular with no murmurs, rubs, or gallops appreciated Pulmonary: Faint expiratory wheeze noted at the right base. Normal respiratory effort with no use of accessory muscles. Abdomen: Bowel tones present. Soft, nontender, nondistended. No hepatosplenomegaly or masses appreciated. Extremities: No clubbing, cyanosis, edema, or lymphadenopathy appreciated. Skin: Normal temperature, turgor, and texture; no rash, ulcers, or subcutaneous nodules appreciated. Neurological: Cranial nerves grossly intact. Normal muscle strength, tone, and bulk. Moves all 4 extremities spontaneously. Psychiatric: Normal mood and affect. Alert and oriented to person, place, and time. Lab and Diagnostics Result Diagram: 01/25/1743901/25/170 X-Rays, CTs and MRIs X-RAY CHEST ONE VIEW, PORTABLE IMPRESSION: Interstitium is prominent and mild edema versus atypical infection is suspected. Dictated by: Chuckie PHAN Interpreted: Stephan Rodriguez MD on 01/25/2017 at 9: 28 12-lead ECG Atrial fibrillation, no ST changes, probable LVH, left axis deviation. Cardiac Echo Impressions Interpretation Summary The left ventricle is normal in size. Left ventricular systolic function ilsow normal. The ejection fraction is estimated to be 50-55%. Compared to the prior exam, left ventricular function is slightly decreased. There are no obvious focal wall motion abnormalities. The E/E' ratio is severely increased, suggesting possible increased filling pressures. The right ventricle is normal in size and function. The right ventricular systolic pressure is estimated at 33 mmHg assuming a right atrial pressure of 3 mm Hg. RVSP has slightly increased since prior study. The left atrium is severely dilated. The right atrium is mildly dilated. There is no significant valvular heart disease. The aortic root is normal size. Assessment & Plan Anastasia Gaytan is an 86 year old female with history of non-insulin using controlled diabetes mellitus, atrial fibrillation with rate control therapy on Pradaxa, heart failure with preserved EF, coronary artery disease, as well as stress induced cardiomyopathy, who presented to [facility] ED with complaint of shortness of breath that worsened over the last few days. 1. Possible healthcare associated pneumonia, present on admission, active. -Has been hospitalized in the last 90 days. -ED wet read of CXR noted likely LLL infiltrates however this seems unlikely and her CXR looks more consisted with fluid overload -However given her frequent hospitalizations and frail status will treat for at least one more day until we rule out infection -First procalcitonin is negative, will trend tomorrow. -Strep pneumo antigen, legionella antigen, respiratory viral PRC, blood cultures , MRSA screen ordered -Patient received one dose of Levaquin, Vancomycin and Zosyn in the ED, will continue for today. -If her white count improves, her procalcitonin is negative and she remains asymptomatic will likely stop antibiotics tomorrow. 2. Likely exacerbation of chronic heart failure with preserved EF, present on admission, active - Most recent ECHO from 01/12/17 shows EF of 55% with severely elevated E/E' suggestive of a relaxation abnormality -On exam in the ED the patient was noted to have JVD and was give one dose of 40 mg of IV Lasix which seems to have already improved her shortness of breath -On follow up exam she no longer has JVD -As patient is chest pain free will differ a repeat ECHO so soon but will trend troponin -Continue IV Lasix 40 mg daily for now -Hold spironolactone for hyperkalemia 3.Possible normal pressure hydrocephalus -Based on prior CT reading which noted enlarged ventricles -Patient also also complains of urinary incontinence that has not improved at all since her UTIs have been treated -Her daughter notes issues with gate and mentation -Will review imaging again with radiology -No [facility] neurology stone layout marker, may need to discuss case with [facility] Neurology -May need to proceed with LP 4. Hyperkalemia, presumed acute, present on admission -Likely secondary to medication: lisinopril, carvedilol and spironolactone -Patient was treated in the ED with calcium gluconate and insulin -Repeat BMP in the PM -Hold spironolactone 5. Diabetes mellitus, non insulin using, controlled, chronic, present on admission - A1c 6.4% in July 2016 - Hold glyburide and metformin home dosing at this time - Low-dose correctional scale in place 6. Atrial fibrillation, chronic. Presumed stable - Remote tele - O2 nightly for comfort - Continue 0.125mg digoxin daily - Continue ASA 81, Pradaxa - Digoxin level 7. CAD s/p KS. Presumed stable - Trend troponin - Continue ASA, atorvastatin 8. Urinary incontinence, chronic. Managed - Reported to have been present prior to onset of symptoms - Managed at home with utilization of briefs 9. History of cataracts with lens replacement. Stable - Continue Restasis as directed for dry eye relief DIET: heart healthy/CC diet GI: PPI DVT: SCDs, patient is on Pradaxa CODE STATUS: DNR/DNI, patient is fine with BPAP, IV medications and fluids. Patient is admitted under inpatient status with expected length of stay greater than 2 midnights due to severity of presenting symptoms, risk of adverse event, and complexity of treatment plan. Resuscitation Status: DNR/DNI:Do Not Resuscitate/Intubate Attending Statement The patient was seen and examined together with Dr. Ruiz on 01/25/2017 and I agree with the history, exam and plan as outlined in the note above. Hyacinth Ruiz DO Jan 25, 2017 08:04 Matthew Coburn MD Jan 25, 2017 15:06
[2017-01-25] MEDS ORDERED: 0.9% Sodium Chloride 100 ML ONE (14:52)
--- NOTE | 2017-01-25 15:01 | PCM.PHAPRO ---
Progress Vancomycin Management by Pharmacy: -empiric treatment for pt with sob, possible Hcap -concurrent antibiotics include Zosyn 3.375gm iv q8 and Levofloxacin 750mg iv q48hrs (adjusted for renal function) -procalcitonin 0.07, lactic acid 1.7, serum creatinine 0.48, est clearance ~ 48ml/min -wbc 14.3 with left shift -pulse was 109 in ED -nephrotoxic risks include concurrent Zosyn, DM, age -Plan: pt received Vancomycin 1gm in ED ~ 0823 this morning. will continue with 1gm iv [id number] and draw trough level prior to 4th dose on 01/28 at 0800 (or sooner if serum creatinine increases) Evelyn Aguilar [facility] Jan 25, 2017 15:01
[2017-01-25] MEDS: Piperacillin-Tazo 3.375 Gm Inj 3.375 GM in Dextrose 5% Minibag Plus 50 ML IV SCH ×2 (15:29→22:55)
--- NOTE | 2017-01-25 16:27 | NUR ---
wound Pt has a wound on her right lower posterior calf that [facility] has been tending to. Pt refused to let this RN remove dressing to get a visual. I asked the pt if she I could have our wound care nurse to look at it and re-dress it. Pt was okay with. Placed order for wound consult. Jerry from wound care arrived around 1600 and drained, packed and re-dressed hematoma. Wound care will comeback tomorrow 01/26/17 and repack and dress wound. See wound care note for physical description.
[2017-01-25] MEDS: Insulin LISPRO 300 Unit/3 mL Inj SUBQ SCH ×2 (17:38→22:18)
--- NOTE | 2017-01-25 18:05 | NUR ---
Wound Care Wound evaluation order received, patient seen at bedside. 86 yo female admitted for shortness of breath, pt poor historian but daughter reports chronic posterior right calf ulcer that may have been due to trauma, Dr Magallanes and Shanelle MIDDLETON have been managing up to this point. Posterior calf wound is 2 cm in diameter, covered with a fluctuant eschar, there is erythema surrounding the wound approximately 6 cms superiorly and inferiorly, a q tip used as probe goes to 2 cm in depth, there is no purulence. Patient has no pain at wound during assessment or treatment.Wound was cleaned of necrotic fat and clotted blood with a #15 blade then irrigated copiously with saline, repacked with 1/4" iodofrm gauze and covered with an adhesive foam dressing. Will need to follow up at wound center on discharge for ongoing treatment of the ulcer. WS to follow up and change dressing tomorrow.
--- NOTE | 2017-01-25 18:07 | NUR ---
oxygenation pt was on 2L NC with Sp02 of 95%, decreased to 1L and pt maintained at 95%. Pt did not want to try no oxygen
[2017-01-25] MEDS: Pantoprazole 20 mg ER24 Tablet PO SCH (22:15)
[2017-01-26] VITALS (7 sets, daily range): BP systolic 133–161; BP diastolic 52–76; PULSE 62–84; RESP 18–20; O2SAT 94–97
--- NOTE | 2017-01-26 05:27 | NUR ---
Uneventful Night: Pt had an uneventful night, no c/o pain, chest pain or SOB. Pt slept most of the night, pleasant and cooperative with care.
[2017-01-26] MEDS: Piperacillin-Tazo 3.375 Gm Inj 3.375 GM in Dextrose 5% Minibag Plus 50 ML IV SCH (06:05)
[2017-01-26 06:35] LABS: BASOPHILS % (AUTO) 0.2 % (0-3); EOSINOPHILS % (AUTO) 0.8 % (0-5); MONOCYTES % (AUTO) 10.7 % (4-12); Mean Corpuscular Hemoglobin 30.7 pg (27.0-35.0); Mean Corpuscular Volume 92.9 fL (81-100); NEUTROPHILS % (AUTO) 79.6 % (40-74); Platelet Count 228 bil/L (150-400)
[2017-01-26] MEDS: Sodium Chloride LOK Flush 10 mL Syringe IVFLUSH SCH ×2 (08:30→17:00)
[2017-01-26] MEDS: Vancomycin Dose per Pharmacist XX SCH (08:30)
[2017-01-26] MEDS ORDERED: Vancomycin 1 Gm/200 mL NS Premix IV SCH (08:30)
[2017-01-26] MEDS: Pt Own Med->RESTASIS BOTH_EYES SCH ×2 (08:30→20:18)
--- NOTE | 2017-01-26 09:07 | DRSVH ---
PROCEDURE: X-RAY CHEST ONE VIEW ([id number]) INDICATIONS: CHF TECHNIQUE: One view of the chest was acquired. COMPARISON: [facility], CR, XR CHEST 1VW (PORTABLE), 01/25/2017, 4:09. FINDINGS: Surgical changes and devices: None. Lungs and pleura: No pleural effusions or pneumothorax. Persistent mild pulmonary edema pattern wit h prominent pulmonary interstitium and increased vascularity. Mediastinum: Mediastinal contours appear normal. Heart size is normal. Bones and chest wall: No suspicious bony lesions. Overlying soft tissues appear unremarkable. IMPRESSION: Persistent mild pulmonary edema. Dictated by: Chuckei Kumar RRA Interpreted: Sandra Pope MD on 01/26/2017 at 9:06 Transcribed by: REJI on 01/26/2017 at 9:07 Approved by: Sandra Pope M.D. on 01/26/2017 at 13:44
[2017-01-26] MEDS: Insulin LISPRO 300 Unit/3 mL Inj SUBQ SCH ×4 (09:25→20:11)
[2017-01-26] MEDS: Ascorbic Acid 500 mg Tablet PO SCH (09:26)
[2017-01-26] MEDS: Pantoprazole 20 mg ER24 Tablet PO SCH ×2 (09:27→20:08)
[2017-01-26] MEDS: Dabigatran 150 mg Capsule PO SCH ×2 (09:51→20:09)
--- NOTE | 2017-01-26 11:41 | NUR ---
Social Work: Readiness for d/c Data: Pt is on day 1 of hospitalization. EMR reviewed. PT states pt is very near her baseline. Returning to [facility] with brian MIDDLETON is a good option. MACHINIST/MACHINE BUILDER called [facility], spoke with Lacy GIL, who requested clinicals and states they will be at hospital for evaluation of pt on 01/27 per MACHINIST/MACHINE BUILDER request. MACHINIST/MACHINE BUILDER asked [facility] specialist to fax over clinicals to [facility], fax number [phone]. Pt discussed in rounds, states pt likely ready for d/c tomorrow. MACHINIST/MACHINE BUILDER will continue to follow. Assessment: Pt from [facility], [facility]. Plan: Pt will return to [facility], with brian MIDDLETON RN/PT/OT. states pt likely ready for d/c tomorrow. MACHINIST/MACHINE BUILDER will continue to follow. BARNEY Rowley
--- NOTE | 2017-01-26 12:03 | NUR ---
Evaluation completed. Please go to "Notes" then click on "Assessments and Notes" (bottom left corner of screen). Then select appropriate discipline tab on top of screen.
--- NOTE | 2017-01-26 12:38 | PCM.PNMED ---
Subjective Date of Service Jan 26, 2017 Subjective 86 year old female with history of non-insulin using controlled diabetes mellitus, atrial fibrillation with rate control therapy on Pradaxa, heart failure with preserved EF, coronary artery disease, as well as stress induced cardiomyopathy, who presented to [facility] ED with complaint of shortness of breath that worsened over the last few days. Overnight no acute events This morning patient reports feeling much better, is not experiencing any shortness of breath. She is having some mild tenderness in her right calf in the area of her wound. Exam Vital Signs Vital Sign - Last Date Time Temp Pulse Resp B/P Pulse Ox O2 Delivery O2 Flow Rate FiO2 01/26/17 06:02 36.7 82 18 156/76 95 Nasal Cannula 1.00 Intake and Output 01/25/17 01/25/17 01/26/17 Cumulative From/Thru 15:00 23:00 07:00 01/25/17 04:09 - 01/26/17 06:34 Intake Total 700 ml 200 ml 900 ml Output Total 1100 ml 700 ml 2400 ml Balance -400 ml -500 ml -1500 ml Intake Oral 700 ml 200 ml 900 ml Output Urine Total 1100 ml 700 ml 2400 ml # Bowel Movements 0 0 Exam General: No acute distress, well-developed, well-nourished, appropriately interactive elderly lady in a hospital bed. HEENT: Normocephalic, atraumatic. External ears without defect. Pupils equal, round, and reactive to light and accommodation. Anicteric sclerae, moist conjunctivae, and no lid lag. Oropharynx free of erythema and cobble stoning with moist mucosa. Neck: Supple with full range of motion. No jugular venous distension. No lymphadenopathy or thyromegaly. Cardiovascular: Irregularly irregular with no murmurs, rubs, or gallops appreciated Pulmonary: Lungs clear to auscultation bilaterally. Normal respiratory effort with no use of accessory muscles. Abdomen: Bowel tones present. Soft, nontender, nondistended. No hepatosplenomegaly or masses appreciated. Extremities: Dressing intact on the posterior lower leg with small spot of dried blood. No clubbing, cyanosis, edema, or lymphadenopathy appreciated. Skin: Normal temperature, turgor, and texture; no rash, ulcers, or subcutaneous nodules appreciated. Neurological: Cranial nerves grossly intact. Normal muscle strength, tone, and bulk. Moves all 4 extremities spontaneously. Psychiatric: Normal mood and affect. Alert and oriented to person, place, and time. Lab and Diagnostics Result Diagram: 01/26/1715 01/26/1715 X-Rays, CTs and MRIs X-RAY CHEST ONE VIEW, PORTABLE IMPRESSION: Interstitium is prominent and mild edema versus atypical infection is suspected. Dictated by: Chuckie PHAN Interpreted: Stephan Rodriguez MD on 01/25/2017 at 9: 28 12-lead ECG Atrial fibrillation, no ST changes, probable LVH, left axis deviation. Cardiac Echo Impressions Interpretation Summary The left ventricle is normal in size. Left ventricular systolic function ilsow normal. The ejection fraction is estimated to be 50-55%. Compared to the prior exam, left ventricular function is slightly decreased. There are no obvious focal wall motion abnormalities. The E/E' ratio is severely increased, suggesting possible increased filling pressures. The right ventricle is normal in size and function. The right ventricular systolic pressure is estimated at 33 mmHg assuming a right atrial pressure of 3 mm Hg. RVSP has slightly increased since prior study. The left atrium is severely dilated. The right atrium is mildly dilated. There is no significant valvular heart disease. The aortic root is normal size. Assessment & Plan Anastasia Gaytan is an 86 year old female with history of non-insulin using controlled diabetes mellitus, atrial fibrillation with rate control therapy on Pradaxa, heart failure with preserved EF, coronary artery disease, as well as stress induced cardiomyopathy, who presented to [facility] ED with complaint of shortness of breath that worsened over the last few days. 1. Exacerbation of chronic heart failure with preserved EF, present on admission, active - Most recent ECHO from 01/12/17 shows EF of 55% with severely elevated E/E' suggestive of a relaxation abnormality -On exam in the ED the patient was noted to have JVD and was give one dose of 40 mg of IV Lasix which seems to have already improved her shortness of breath -On follow up exam she no longer has JVD -As patient is chest pain free will differ a repeat ECHO so soon but will trend troponin -Continue IV Lasix 40 mg daily for now -Hold spironolactone for hyperkalemia which has now resolved 2. Unlikely healthcare associated pneumonia, present on admission, active. -Has been hospitalized in the last 90 days. -ED wet read of CXR noted likely LLL infiltrates however this seems unlikely and her CXR looks more consisted with fluid overload -However given her frequent hospitalizations and frail status will treat for at least one more day until we rule out infection -First procalcitonin is negative, second is only slightly elevated at 0.10, will trend tomorrow. -Strep pneumo antigen, legionella antigen, respiratory viral PRC all negative, -blood cultures show no growth after 24 hours, MRSA screen ordered -Patient received one dose of Levaquin, Vancomycin and Zosyn in the ED, and continued upon admission -Antibiotics stopped, in light of white count improvement and, she remains asymptomatic. 3.Possible normal pressure hydrocephalus -Based on prior CT reading which noted enlarged ventricles -Patient also also complains of urinary incontinence that has not improved at all since her UTIs have been treated though this has been going on for almost 20 years. -Her daughter notes issues with gate and mentation -Will review imaging again with radiology -Discussed with Dr. Koenig of neurology who recommends a cisternogram for definitive diagnosis, if positive referral to the [facility] normal pressure hydrocephalus clinic would be warranted. He notes symptoms have been present for greater than a year and neurosurgical intervention would not likely be helpful. -Recommend cisternogram be ordered outpatient as imaging would need to occur on 5 consecutive days. -May need to proceed with LP 4. Hyperkalemia, presumed acute, present on admission -Likely secondary to medication: lisinopril, carvedilol and spironolactone -Patient was treated in the ED with calcium gluconate and insulin -Repeat BMP shows resolution, continue to trend -Hold spironolactone 5. Diabetes mellitus, non insulin using, controlled, chronic, present on admission - A1c 6.4% in July 2016 - Hold glyburide and metformin home dosing at this time - Low-dose correctional scale in place 6. Atrial fibrillation, chronic. Presumed stable - Remote tele - O2 nightly for comfort - Continue 0.125mg digoxin daily - Continue ASA 81, Pradaxa - Digoxin level 7. CAD s/p ID. Presumed stable - Trend troponin- all negative - Continue ASA, atorvastatin 8. Urinary incontinence, chronic. Managed - Reported to have been present prior to onset of symptoms - Managed at home with utilization of briefs 9. History of cataracts with lens replacement. Stable - Continue Restasis as directed for dry eye relief 10. Generalized weakness and deconditioning, present on admission, subacute - Patient with slow progression to difficulty with ambulation. Uses a power chair for ambulation primarily - PT evaluation DIET: heart healthy/CC diet GI: PPI DVT: SCDs, patient is on Pradaxa CODE STATUS: DNR/DNI, patient is fine with BPAP, IV medications and fluids. Patient is admitted under inpatient status with expected length of stay greater than 2 midnights due to severity of presenting symptoms, risk of adverse event, and complexity of treatment plan. Pain Evaluation: Adequate Pain Control GI Prophylaxis: Not indicated VTE Prophylaxis: Other (pradaxa) Resuscitation Status: DNR/DNI:Do Not Resuscitate/Intubate Attending Statement The patient was seen and examined together with Dr. Maldonado on 01/26/2017 and I agree with the history, exam and plan as outlined in the note above. Symone Maldonado DO Jan 26, 2017 07:57 Matthew Coburn MD Jan 27, 2017 09:17
--- NOTE | 2017-01-26 15:18 | NUR ---
Wound Care Patient seen at bedside for wound care and nonexcisional debridement of necrotic fat from the right posterior calf ulcer with a #3 curette. Wound measures 2.5 cm in diameter with a depth of 2 cm, wound is undermined 2 cms circumferentially starting at 7 o'clock to 5 o'clock. Wound is stable and uninfected but will need excisional debridement on an outpatient basis to facilitate healing. Dressing included packing of the wound with saline moist 1/4" iodoform strip and an adhesive foam dressing. Will follow up with this patient tomorrow.
--- NOTE | 2017-01-26 15:22 | NUR ---
Social Work: Continued d/c planning Data: Pt is on day 1 of hospitalization. EMR reviewed. APPLIANCE WORKER met with pt and her children at bedside. PT recommending home with HH or to SNF. APPLIANCE WORKER presented options of private pay SNF if pt discharges tomorrow or home with HH. She states they will not do private pay SNF. Pt and daughter requested referral to be sent to [facility], UR specialist requested to do this. APPLIANCE WORKER will continue to follow. Assessment: Pt from [facility]. Plan: If pt discharges tomorrow she will go home with HH, as pt and family will not pay privately for SNF. If pt discharges in 2 or more days, pending approval from [facility] and continued SNF recommendation from PT, pt will d/c to [facility]. APPLIANCE WORKER will continue to follow. BARNEY Rowley
--- NOTE | 2017-01-26 15:28 | NUR ---
Gave access and faxed facesheet to [facility] per ASSEMBLER DIELECTRIC HEATER
--- NOTE | 2017-01-26 17:57 | NUR ---
oxygen use attempted to ween off O2 this afternoon. on room air patient's O2 sat dropped to 88-90%. reapplied oxygen at 1 L/min via NC O2 sat returned to 95%. denies SOB or CP. continue to monitor.
[2017-01-27] VITALS (13 sets, daily range): BP systolic 128–191; BP diastolic 62–100; PULSE 52–83; RESP 20; O2SAT 93–97
[2017-01-27] MEDS: Sodium Chloride LOK Flush 10 mL Syringe IVFLUSH SCH ×3 (00:59→17:17)
--- NOTE | 2017-01-27 03:25 | NUR ---
Uneventful Night pt has been able to sleep during the night with minimal interruptions. VSS. pt reports PRN Tylenol has been effective for her feet pain (pt reported pain as neuropathy). hourly rounding in effect, pt using call light to make needs known. bed alarm on for safety.
[2017-01-27 06:21] LABS: BASOPHILS % (AUTO) 0.1 % (0-3); EOSINOPHILS % (AUTO) 1.4 % (0-5); MONOCYTES % (AUTO) 11.8 % (4-12); Mean Corpuscular Hemoglobin 30.7 pg (27.0-35.0); Mean Corpuscular Volume 93.7 fL (81-100); NEUTROPHILS % (AUTO) 77.9 % (40-74); Platelet Count 233 bil/L (150-400)
[2017-01-27] MEDS: Pantoprazole 20 mg ER24 Tablet PO SCH ×2 (07:49→20:15)
[2017-01-27] MEDS: Ascorbic Acid 500 mg Tablet PO SCH (07:49)
[2017-01-27] MEDS: Pt Own Med->RESTASIS BOTH_EYES SCH ×2 (07:50→20:16)
[2017-01-27] MEDS: Dabigatran 150 mg Capsule PO SCH ×2 (07:50→21:24)
[2017-01-27] MEDS: Insulin LISPRO 300 Unit/3 mL Inj SUBQ SCH ×4 (07:51→21:25)
[2017-01-27] MEDS ORDERED: levoFLOXacin Inj 750 MG in IV Premix 1 EACH IV SCH (08:30)
--- NOTE | 2017-01-27 09:17 | NUR ---
KELLY: Spoke with REPAIRER WOOD FURNITURE and daughter is DPOA, she will be speaking with family and will give them the KELLY via phone.
--- NOTE | 2017-01-27 10:30 | NUR ---
KELLY signed Verbal permission to sign by pt's daughter via phone. BARNEY Rowley
--- NOTE | 2017-01-27 13:44 | NUR ---
Social Work: Readiness for d/c Data: Pt is on day 2 of hospitalization. EMR reviewed, pt discussed in rounds. spoke with CONSTRUCTION ELECTRICIAN after meeting with pt that pt is not ready for d/c today, but likely tomorrow due to blood sugar levels. CONSTRUCTION ELECTRICIAN spoke with pt's daughter regarding d/c plan. [facility] can accept pt, pt and family agreeable to pt going there when ready for d/c. CONSTRUCTION ELECTRICIAN will continue to follow. Assessment: Pt from [facility]. Plan: Pt will d/c to [facility], likely tomorrow. CONSTRUCTION ELECTRICIAN will continue to follow. BARNEY Rowley
--- NOTE | 2017-01-27 16:52 | PCM.PNMED ---
Subjective Date of Service Jan 27, 2017 Subjective 86 year old female with history of non-insulin using controlled diabetes mellitus, atrial fibrillation with rate control therapy on Pradaxa, heart failure with preserved EF, coronary artery disease, as well as stress induced cardiomyopathy, who presented to [facility] ED with complaint of shortness of breath that worsened over the last few days. Overnight no acute events This morning patient reports feeling well. She is having no shortness of breath , no headache, she continues to have some tenderness in her right calf however her pain is controlled. Exam Vital Signs Vital Sign - Last Date Time Temp Pulse Resp B/P Pulse Ox O2 Delivery O2 Flow Rate FiO2 01/27/17 15:24 Nasal Cannula 2.00 01/27/17 12:54 36.7 55 20 150/62 97 Intake and Output 01/26/17 01/26/17 01/27/17 Cumulative From/Thru 15:00 23:00 07:00 01/25/17 04:09 - 01/26/17 17:09 Intake Total 800 ml 1700 ml Output Total 725 ml 3125 ml Balance 75 ml -1425 ml Intake Oral 800 ml 1700 ml Output Urine Total 725 ml 3125 ml # Bowel Movements 0 0 Exam General: No acute distress, well-developed, well-nourished, appropriately interactive elderly lady in a hospital bed. HEENT: Normocephalic, atraumatic. External ears without defect. Pupils equal, round, and reactive to light and accommodation. Anicteric sclerae, moist conjunctivae, and no lid lag. Oropharynx free of erythema and cobble stoning with moist mucosa. Neck: Supple with full range of motion. No jugular venous distension. No lymphadenopathy or thyromegaly. Cardiovascular: Irregularly irregular with no murmurs, rubs, or gallops appreciated Pulmonary: Lungs clear to auscultation bilaterally. Normal respiratory effort with no use of accessory muscles. Abdomen: Bowel tones present. Soft, nontender, nondistended. No hepatosplenomegaly or masses appreciated. Extremities: Dressing intact on the posterior lower leg with quarter size spot of dried blood. No clubbing, cyanosis, edema, or lymphadenopathy appreciated. Skin: Normal temperature, turgor, and texture; no rash, ulcers, or subcutaneous nodules appreciated. Neurological: Cranial nerves grossly intact. Moves all 4 extremities spontaneously. Psychiatric: Normal mood and affect. Alert and oriented to person, place, and time. Lab and Diagnostics Result Diagram: 01/27/17 0545 01/27/17 0545 X-Rays, CTs and MRIs X-RAY CHEST ONE VIEW, PORTABLE IMPRESSION: Interstitium is prominent and mild edema versus atypical infection is suspected. Dictated by: Chuckie PHAN Interpreted: Stephan Rodriguez MD on 01/25/2017 at 9: 28 12-lead ECG Atrial fibrillation, no ST changes, probable LVH, left axis deviation. Cardiac Echo Impressions Interpretation Summary The left ventricle is normal in size. Left ventricular systolic function ilsow normal. The ejection fraction is estimated to be 50-55%. Compared to the prior exam, left ventricular function is slightly decreased. There are no obvious focal wall motion abnormalities. The E/E' ratio is severely increased, suggesting possible increased filling pressures. The right ventricle is normal in size and function. The right ventricular systolic pressure is estimated at 33 mmHg assuming a right atrial pressure of 3 mm Hg. RVSP has slightly increased since prior study. The left atrium is severely dilated. The right atrium is mildly dilated. There is no significant valvular heart disease. The aortic root is normal size. Assessment & Plan Anastasia Gaytan is an 86 year old female with history of non-insulin using controlled diabetes mellitus, atrial fibrillation with rate control therapy on Pradaxa, heart failure with preserved EF, coronary artery disease, as well as stress induced cardiomyopathy, who presented to [facility] ED with complaint of shortness of breath that worsened over the last few days. 1. Exacerbation of chronic heart failure with preserved EF, present on admission, active - Most recent ECHO from 01/12/17 shows EF of 55% with severely elevated E/E' suggestive of a relaxation abnormality -On exam in the ED the patient was noted to have JVD and was give one dose of 40 mg of IV Lasix which seems to have already improved her shortness of breath -On follow up exam she no longer has JVD -As patient is chest pain free will differ a repeat ECHO so soon but will trend troponin which were negative 3 -IV Lasix converted to 40 mg by mouth daily -Hold spironolactone for hyperkalemia which has now resolved 2. Unlikely healthcare associated pneumonia, present on admission, active. -Has been hospitalized in the last 90 days. -ED wet read of CXR noted likely LLL infiltrates however this seems unlikely and her CXR looks more consisted with fluid overload -However given her frequent hospitalizations and frail status will treat for at least one more day until we rule out infection -First procalcitonin is negative, second is only slightly elevated at 0.10, then returned to normal -Strep pneumo antigen, legionella antigen, respiratory viral PRC all negative, -blood cultures show no growth after 24 hours, MRSA screen ordered -Patient received one dose of Levaquin, Vancomycin and Zosyn in the ED, and continued upon admission -Antibiotics stopped, in light of white count improvement and, she remains asymptomatic. 3. Diabetes mellitus, non insulin using, uncontrolled, chronic, present on admission - A1c 6.4% in July 2016 - Hold glyburide and metformin home dosing at this time - Low-dose correctional scale in place - Patient's blood sugars remained primarily in the low 200s - Add Lispro 5 units each meal. 4. Hyperkalemia, presumed acute, present on admission, resolved -Likely secondary to medication: lisinopril, carvedilol and spironolactone -Patient was treated in the ED with calcium gluconate and insulin -Repeat BMP shows resolution, continue to trend -Hold spironolactone 5. Possible normal pressure hydrocephalus -Based on prior CT reading which noted enlarged ventricles -Patient also also complains of urinary incontinence that has not improved at all since her UTIs have been treated though this has been going on for almost 20 years. -Her daughter notes issues with gate and mentation -Will review imaging again with radiology -Discussed with Dr. Koenig of neurology who recommends a cisternogram for definitive diagnosis, if positive referral to the [facility] normal pressure hydrocephalus clinic would be warranted. He notes symptoms have been present for greater than a year and neurosurgical intervention would not likely be helpful. -Recommend cisternogram be ordered outpatient as imaging would need to occur on 5 consecutive days. -May need to proceed with LP 6. Atrial fibrillation, chronic. Presumed stable - Remote tele - O2 nightly for comfort - Continue 0.125mg digoxin daily - Continue ASA 81, Pradaxa - Digoxin level low at 0.8 7. CAD s/p CT. Presumed stable - Trend troponin- all negative - Continue ASA, atorvastatin 8. Urinary incontinence, chronic. Managed - Reported to have been present prior to onset of symptoms - Managed at home with utilization of briefs - Discontinue Monroe catheter today in anticipation for discharge tomorrow 9. History of cataracts with lens replacement. Stable - Continue Restasis as directed for dry eye relief 10. Generalized weakness and deconditioning, present on admission, subacute - Patient with slow progression to difficulty with ambulation. Uses a power chair for ambulation primarily - PT evaluation recommends longterm facility for rehabilitation DIET: heart healthy/CC diet GI: PPI DVT: SCDs, patient is on Pradaxa CODE STATUS: DNR/DNI, patient is fine with BPAP, IV medications and fluids. Patient is admitted under inpatient status with expected length of stay greater than 2 midnights due to severity of presenting symptoms, risk of adverse event, and complexity of treatment plan. Patient is likely to discharge tomorrow to longterm facility family preference [facility]. Pain Evaluation: Adequate Pain Control GI Prophylaxis: Not indicated VTE Prophylaxis: Other (pradaxa) VTE Mechanical Devices: Venous Foot Pump Resuscitation Status: DNR/DNI:Do Not Resuscitate/Intubate Attending Statement The patient was seen and examined together with Dr. Maldonado on 01/27/2017 and I agree with the history, exam and plan as outlined in the note above. Symone Maldonado DO Jan 27, 2017 16:52 Matthew Coburn MD Jan 28, 2017 11:25
--- NOTE | 2017-01-27 18:30 | NUR ---
Fer taylor/bernadine taylor/bernadine at 1800. Pt tolerated it well. Brief placed on pt per request. Addendum: 01/27/17 at 2134 by ANTHONY GORE RN Patient voided at 2115, 75ml and had a slightly wet brief.
[2017-01-28] VITALS (9 sets, daily range): BP systolic 147–221; BP diastolic 66–105; PULSE 68–111; RESP 22–28; O2SAT 95–99
[2017-01-28] MEDS ORDERED: Furosemide 10 mg/mL 4 mL Inj IVPUSH ONE (00:40)
[2017-01-28] MEDS: Sodium Chloride LOK Flush 10 mL Syringe IVFLUSH SCH ×2 (00:42→08:56)
--- NOTE | 2017-01-28 01:12 | NUR ---
Patient condition Patient reported at 0015 that she was feeling short of breath. On 2L, oxygen saturations were 86-87%, increased rate to 4L and saturations went to 97%. Patient reported "not feeling well". Vital signs showed SBP 215, sitting. Rechecked laying and it was 221. MD drew, came to patient's bedside. Manual BP check was 190/90. New orders received to give OT IV Lasix, stat EKG, OT sublingual Nitro tab, and labs were ordered. cathodic protection technician reported that at 0023, patient had 9 beats V-tach, aware. Close monitoring in place. Addendum: 01/28/17 at 0143 by ANTHONY GORE RN Stayed with patient for about an hour, explained all interventions. At 0130, patient reported that she wants to sleep. Patient is no longer diaphoretic. Will continue close monitoring. Addendum: 01/28/17 at 0334 by ANTHONY GORE RN After lab results, MD ordered UA and chest X-ray. Both have been done. Patient has reported increased comfort, appears to be feeling better. BP remains elevated. Currently sleeping.
[2017-01-28 01:43] LABS: Magnesium 2.1 mg/dL (1.6-2.6)
[2017-01-28 01:45] LABS: BASOPHILS % (AUTO) 0.2 % (0-3); EOSINOPHILS % (AUTO) 0.6 % (0-5); MONOCYTES % (AUTO) 6.7 % (4-12); Mean Corpuscular Hemoglobin 30.7 pg (27.0-35.0); Mean Corpuscular Volume 93.6 fL (81-100); Platelet Count 346 bil/L (150-400)
[2017-01-28] MEDS ORDERED: Insulin LISPRO 300 Unit/3 mL Inj SUBQ ONE (02:10)
[2017-01-28 03:01] LABS: APPEARANCE,URINE CLEAR (CLEAR,HAZY); COLOR,URINE STRAW (YELLOW); OCCULT BLOOD,URINE NEGATIVE (NEGATIVE); PH,URINE 5.5 (5.0-8.0); UROBILINOGEN,URINE NORMAL (NORMAL)
[2017-01-28] MEDS ORDERED: levoFLOXacin Inj 750 MG in IV Premix 1 EACH IV SCH (03:05)
[2017-01-28] MEDS ORDERED: 0.9% Sodium Chloride 250 ML ONE (04:03)
[2017-01-28 05:28] LABS: BASOPHILS % (AUTO) 0.1 % (0-3); EOSINOPHILS % (AUTO) 0.1 % (0-5); MONOCYTES % (AUTO) 7.1 % (4-12); Mean Corpuscular Hemoglobin 30.8 pg (27.0-35.0); Mean Corpuscular Volume 93.2 fL (81-100); NEUTROPHILS % (AUTO) 89.5 % (40-74); Platelet Count 285 bil/L (150-400)
[2017-01-28] MEDS: Insulin LISPRO 300 Unit/3 mL Inj SUBQ SCH ×2 (07:50→11:25)
[2017-01-28] MEDS ORDERED: Vancomycin Serum Trough XX ONE (08:00)
[2017-01-28] MEDS: Pt Own Med->RESTASIS BOTH_EYES SCH (08:30)
[2017-01-28] MEDS: Dabigatran 150 mg Capsule PO SCH (08:50)
[2017-01-28] MEDS: Ascorbic Acid 500 mg Tablet PO SCH (08:50)
[2017-01-28] MEDS: Pantoprazole 20 mg ER24 Tablet PO SCH (08:57)
--- NOTE | 2017-01-28 09:35 | DRSVH ---
PROCEDURE: X-RAY CHEST ONE VIEW, PORTABLE ([id number]) INDICATIONS: SHORT OF BREATH TECHNIQUE: One view of the chest was acquired. COMPARISON: [facility], CR, XR CHEST 1VW, 01/26/2017, 5:49. FINDINGS: Surgical changes and devices: None. Lungs and pleura: No pleural effusions or pneumothorax. Persistent mild pulmonary edema pattern wit h prominent pulmonary interstitium and increased vascularity. Mediastinum: Mediastinal contours appear normal. Heart size is normal. Bones and chest wall: No suspicious bony lesions. Overlying soft tissues appear unremarkable. IMPRESSION: Persistent mild edema unchanged. Dictated by: Chuckie Kumar RRA Interpreted: Rekha Severino MD on 01/28/2017 at 9:34 Transcribed by: ZUHAIR on 01/28/2017 at 9:34 Approved by: Rekha Severino MD, PhD on 01/28/2017 at 17:05
[2017-01-28] MEDS ORDERED: INSLIS SUBQ (11:19)
--- NOTE | 2017-01-28 11:26 | PCM.DICHF ---
Hyacinth Ruiz 01/28/17 1125: CHF Discharge Instructions Date of Service: Jan 28, 2017 Dates of Hospitalization Date of Hospital Admission Jan 25, 2017 at 06:41 Date of Discharge: Jan 28, 2017 Providers Admitting Physician: Adriana Damon DO Primary Care Physician: Eamon Magallanes MD Attending Physician: Adriana Damon DO Diagnosis at Time of Discharge Diagnosis at time of discharge 1. Exacerbation of chronic heart failure with preserved EF, present on admission, active 2. Unlikely healthcare associated pneumonia, present on admission, active. 3. Diabetes mellitus, non insulin using, controlled, chronic, present on admission 4. Hyperkalemia, presumed acute, present on admission, resolved 5. Possible normal pressure hydrocephalus 6. Atrial fibrillation, chronic. Presumed stable 7. CAD s/p MS. Presumed stable 8. Urinary incontinence, chronic. Managed 9. History of cataracts with lens replacement. Stable 10. Generalized weakness and deconditioning, present on admission, subacute Problems: Labs Ejection Fraction 55% Laboratory Tests Test Range/Units 01/25/17 04:40 01/25/17 06:20 01/26/17 06:15 01/27/17 05:45 Uric Acid 2.6-7.2 mg/dL 7.3 Total Creatine Kinase 21-215 U/L 36 Creatine Kinase MB 0.0-5.3 ng/mL 1.4 Creatine Kinase MB % 0.0-5.0 % Pro-B-Type Natriuretic Peptide 0-738 pg/mL 1517 Lactic Acid Level 0.4-2.0 mmol/L 1.7 Hemoglobin A1c 4.8-5.6 % 6.5 Procalcitonin 0.00-0.08 ng/mL 0.07 Test Range/Units 01/28/17 01:00 01/28/17 05:05 Magnesium Level 1.6-2.6 mg/dL 2.1 Troponin T 0.0-0.011 ug/L 0.010 Sodium Level 134-144 mEq/L 139 Potassium Level 3.5-5.2 mEq/L 5.0 Chloride Level 97-108 mEq/L 94 Carbon Dioxide Level 18-29 mmol/L 31 Blood Urea Nitrogen 8-27 mg/dL 20 Creatinine 0.57-1.00 mg/dL 0.54 Estimat Glomerular Filtration Rate >59 mL/min 153 Glucose Level 60-99 mg/dL 244 Calcium Level 8.5-10.1 mg/dL 9.7 Total Bilirubin 0.0-1.2 mg/dL 0.5 Aspartate Amino Transf (AST/SGOT) 0-50 U/L 19 Alanine Aminotransferase (ALT/SGPT) 0-32 U/L 12 Alkaline Phosphatase 25-165 U/L 58 Total Protein 6.4-8.4 g/dL 7.3 Albumin 3.4-5.0 g/dL 3.6 Discharge Medications Other Medication Instructions You have received instructions on the medications your physician has prescribed at discharge. A list of these medications has been provided to you. Keep this and a list of all current medications with you. Keep the dates when you received the Flu and Pneumococcal (Pneumonia) Vaccines. Last known date of receiving Flu Vaccine 11/2016 Last known date of receiving Pneumococcal (Pneumonia) Vaccine TORCH BRAZER Diet CHF Discharge Diet: Fluid restriction, Low fat, Low Sodium, Diabetic Diet Instructions CHF Low Salt diet ( 2 grams or less sodium/day) Choose foods and drinks with low or no salt. Remove salt shaker from the table. Read Nutritional Facts labels. Activity CHF Discharge Activity: Activity as energy allows, Stop when short breath/pain/ dizzy Weight Monitoring 1. Weigh yourself every day at the same time and write it down. 2. Take your weight log to your doctor visits. 3. Call your doctor if you gain 3-5 pounds over 2-3 days. 4. Your weight today is 135.14 lbs. Additional Instructions CHF Teaching Packet given and: Yes Follow Up Plan Follow Up Plan Please follow up with your PCP in about a week. Please follow up with Dr. Santana as soon as you can. There has been only one change to your medications. We added sliding scale insulin to your normal regiment. If you blood sugar is better controlled soon you may be able to stop the insulin. Please take the 40 mg of Lasix daily. Cardiology Follow-up Provider: 1 week Report or call your Doctor REPORT TO YOUR DOCTOR OR SEEK MEDICAL ATTENTION: *Shortness of breath or have more difficulty breathing. *Swelling of your feet, ankles, hands or abdomen. *Feeling tired with normal activity or experiencing dizziness or fainting. *Trouble sleeping or waking up feeling short of breath or coughing. *Chest pain or pressure. *Weight gain of 3-5 pounds over 2-3 days. *Inability to take medications or follow treatment plan Heart Attach warning signs HEART ATTACK WARNING SIGNS * Chest discomfort. *Discomfort or pain in one or both arms, back, neck, jaw or stomach. *Shortness of breath. *Breaking out in a cold sweat, nausea, or lightheadedness. If you're having heart attack warning signs: CALL . DON'T WAIT MORE THAN A FEW MINUTES - 5 MINUTES AT MOST - TO CALL . Matthew Coburn MD 01/29/17 1141: Hyacinth Ruiz DO Jan 28, 2017 11:25 Matthew Coburn MD Jan 29, 2017 11:41
--- NOTE | 2017-01-28 11:30 | NUR ---
Wound Care Patient seen at bedside for dressing change prior to discharge to SNF. Right posterior calf ulcer is 2 cms in diameter with a depth of 2 cms and is undermined 2 cms circumferentially starting at 7 o'clock to 5 o'clock. Wound is cleaned mechanically today with q tip then redressed with 1/4" iodoform packing strip, 4x4 gauze, conform and surgilast. Recommend this dressing be changed daily and for patient to follow up at the wound center in the next week or two.
--- NOTE | 2017-01-28 11:35 | NUR ---
Social Work: Discharge Data: Pt is on day 3 of hospitalization. EMR reviewed. D/C orders are in. UR specialist notified [facility] at transportation was set up for 12:30pm. BULLET SWAGING MACHINE ADJUSTER notified pt, pt's daughter, and RN. Pt's daughter states wound care has yet to see pt today. BULLET SWAGING MACHINE ADJUSTER called Wound Care, left a message. BULLET SWAGING MACHINE ADJUSTER awaiting phone call. BULLET SWAGING MACHINE ADJUSTER will continue to follow. Assessment: Pt from [facility]. Plan: Pt will d/c to [facility] today via cabulance at 12:30pm. BULLET SWAGING MACHINE ADJUSTER called Wound Care, left a message. BULLET SWAGING MACHINE ADJUSTER awaiting phone call. BULLET SWAGING MACHINE ADJUSTER will continue to follow. BARNEY Rowley Addendum: 01/28/17 at 1144 by BRENDAN FONSECA SS Wound care updated BULLET SWAGING MACHINE ADJUSTER that they will be in to see pt around 11:45am, d/c plan stands as above. BARNEY Rowley
--- NOTE | 2017-01-28 11:40 | NUR ---
Faxed orders to [facility] and placed copy in chart, patient is being transported by [facility] at 1230PM. Updated MACHINE OPERATOR HOP PICKER
--- NOTE | 2017-01-28 12:51 | NUR ---
Discharge Note Pt denied any pain this morning, later c/o bilat foot pain, rating at 7/10. PRN Tylenol effective for this. Pt discharged to [facility] with all belongings, accompanied by daughter. Addendum: 01/28/17 at 1259 by MACEY HENNESSY RN Report given to [facility]FFERY Walter.
--- NOTE | 2017-01-28 17:35 | PCM.DC.MED ---
Discharge Summary Date of Service Jan 28, 2017 Dates of Hospitalization Date of Hospital Admission Jan 25, 2017 at 06:41 Date of Discharge: Jan 28, 2017 Providers: Admitting Physician: Adriana Damon DO Primary Care Physician: Eamon Magallanes MD Attending Physician: Adriana Damon DO Diagnosis at Time of Discharge Diagnosis at Time of Discharge 1. Exacerbation of chronic heart failure with preserved EF, present on admission, active 2. Unlikely healthcare associated pneumonia, present on admission, active. 3. Diabetes mellitus, non insulin using, controlled, chronic, present on admission 4. Hyperkalemia, presumed acute, present on admission, resolved 5. Possible normal pressure hydrocephalus 6. Atrial fibrillation, chronic. Presumed stable 7. CAD s/p NV. Presumed stable 8. Urinary incontinence, chronic. Managed 9. History of cataracts with lens replacement. Stable 10. Generalized weakness and deconditioning, present on admission, subacute Procedures XRay, CTs & MRIs X-RAY CHEST ONE VIEW, PORTABLE IMPRESSION: Interstitium is prominent and mild edema versus atypical infection is suspected. Dictated by: Chuckie PHAN Interpreted: Stephan Rodriguez MD on 01/25/2017 at 9: 28 X-RAY CHEST ONE VIEW, PORTABLE IMPRESSION: Persistent mild edema unchanged. Dictated by: Chuckie PHAN Interpreted: Rekha Severino MD on 01/28/2017 at 9:34 ECG 12 Lead Atrial fibrillation, no ST changes, probable LVH, left axis deviation. Cardiac Echo Impression Interpretation Summary The left ventricle is normal in size. Left ventricular systolic function ilsow normal. The ejection fraction is estimated to be 50-55%. Compared to the prior exam, left ventricular function is slightly decreased. There are no obvious focal wall motion abnormalities. The E/E' ratio is severely increased, suggesting possible increased filling pressures. The right ventricle is normal in size and function. The right ventricular systolic pressure is estimated at 33 mmHg assuming a right atrial pressure of 3 mm Hg. RVSP has slightly increased since prior study. The left atrium is severely dilated. The right atrium is mildly dilated. There is no significant valvular heart disease. The aortic root is normal size. Brief History History of present illness on admission per Dr. Ruiz: Anastasia Gaytan is an 86 year old female with history of non-insulin using controlled diabetes mellitus, atrial fibrillation with rate control therapy on Pradaxa, heart failure with preserved EF, coronary artery disease, as well as stress induced cardiomyopathy, who presented to [facility] ED with complaint of shortness of breath that worsened over the last few days. The patient is accompanied by her daughter Funmi and son Ivan who provide much of the history for the patient. The patient has been noting worsening shortness of breath that is exacerbated by laying flat. There is some concern that the patient may skip her medications at times when she is not reminded to take them. The patient denies any fevers, chills, cough, chest pain, weakness, malaise, arthralgia, myalgias or lower extremity edema. No recent falls, dizziness, or LOC. Her main complaint is ongoing urinary incontinence to the point that she needs to use 3 Poise pads at a time. She was previously treated for UTIs due to her urinary incontinence however she states that the incontinence is not changed. She normally gets around with the use of a scooter but does use her walker on rare occasions and has a very difficult time raising her feet of the floor. Her daughter also notes periods of confusion that seem to come and go. At her best the patient seems to be mostly lucid per the daughter. From review of past visits the patient did have several CTs of brain that noted dilated ventricles with normal pressure hydrocephalus as a differential but without an LP preformed. The patient's regular events associate is Dr. Santana and the patient has an appointment with him in two days. In the ED, T36.8, P109, R28, BP166/97, 87% on room air; WBC 14.3 with 85.4% neut. Wet read of CXR by ED physician was concerned for possible left lower lobe pneumonia and the patient was started on vancomycin, Zosyn and Levaquin due to possibility of HCAP. She was also given one dose of 40 mg IV Lasix and states that her breathing is already back to it's normal state. Hospital Course Anastasia Gaytan is an 86 year old female with history of non-insulin using controlled diabetes mellitus, atrial fibrillation with rate control therapy on Pradaxa, heart failure with preserved EF, coronary artery disease, as well as stress induced cardiomyopathy, who presented to [facility] ED with complaint of shortness of breath that worsened over the last few days. 1. Exacerbation of chronic heart failure with preserved EF, present on admission, active - Most recent ECHO from 01/12/17 shows EF of 55% with severely elevated E/E' suggestive of a relaxation abnormality -On exam in the ED the patient was noted to have JVD and was give one dose of 40 mg of IV Lasix which seems to have already improved her shortness of breath -On follow up exam she no longer has JVD -As patient is chest pain free will differ a repeat ECHO so soon but will trend troponin which were negative 3 -IV Lasix converted to 40 mg by mouth daily -spironolactone held for 2 days due to hyperkalemia which has now resolved 2. Unlikely healthcare associated pneumonia, present on admission, active. -Has been hospitalized in the last 90 days. -ED wet read of CXR noted likely LLL infiltrates however this seems unlikely and her CXR looks more consisted with fluid overload -However given her frequent hospitalizations and frail status patient was treated with antibiotics until infection was ruled out -First procalcitonin is negative, second is only slightly elevated at 0.10, then returned to normal -Strep pneumo antigen, legionella antigen, respiratory viral PRC all negative, -blood cultures show no growth after 24 hours, MRSA screen negative -Patient received 2 days of Levaquin, Vancomycin and Zosyn in the ED, . 3. Diabetes mellitus, non insulin using, uncontrolled, chronic, present on admission - A1c 6.4% in July 2016 - Held glyburide and metformin while hospitalized, resumed upon discharge - Low-dose correctional scale in place with 5 units nutritional per meal - Patient's blood sugars remained primarily in the low 200s 4. Hyperkalemia, presumed acute, present on admission, resolved -Likely secondary to medication: lisinopril, carvedilol and spironolactone -Patient was treated in the ED with calcium gluconate and insulin -Repeat BMP shows resolution, -Spironolactone was restarted after initially being held 5. Possible normal pressure hydrocephalus -Based on prior CT reading which noted enlarged ventricles -Patient also also complains of urinary incontinence that has not improved at all since her UTIs have been treated though this has been going on for almost 20 years. -Her daughter notes issues with gate and mentation -Will review imaging again with radiology -Discussed with Dr. Koenig of neurology who recommends a cisternogram for definitive diagnosis, if positive referral to the [facility] normal pressure hydrocephalus clinic would be warranted. He notes symptoms have been present for greater than a year and neurosurgical intervention would not likely be helpful. -Recommend cisternogram be ordered outpatient as imaging would need to occur on 5 consecutive days. 6. Atrial fibrillation, chronic. Presumed stable - O2 nightly for comfort - Continue 0.125mg digoxin daily - Continue ASA 81, Pradaxa - Digoxin level low at 0.8 7. CAD s/p NV. Presumed stable - Trend troponin- all negative - Continue ASA, atorvastatin 8. Urinary incontinence, chronic. Managed - Reported to have been present prior to onset of symptoms - Managed at home with utilization of briefs - Discontinued Monroe catheter in anticipation for discharge 9. History of cataracts with lens replacement. Stable - Continue Restasis as directed for dry eye relief 10. Generalized weakness and deconditioning, present on admission, subacute - Patient with slow progression to difficulty with ambulation. Uses a power chair for ambulation primarily - PT evaluation recommends fpc facility for rehabilitation CODE STATUS: DNR/DNI, patient is fine with BPAP, IV medications and fluids. Patient is discharged to [facility] in stable condition. Exam Vital Signs (Last) Date Time Temp Pulse Resp B/P Pulse Ox O2 Delivery O2 Flow Rate FiO2 01/28/17 11:25 80 01/28/17 09:53 36.7 22 147/66 95 Nasal Cannula 2.00 Exam General: No acute distress, well-developed, well-nourished, appropriately interactive elderly lady in a hospital bed. HEENT: Normocephalic, atraumatic. External ears without defect. Pupils equal, round, and reactive to light and accommodation. Anicteric sclerae, moist conjunctivae, and no lid lag. Wearing shaded glasses Oropharynx free of erythema and cobble stoning with moist mucosa. Neck: Supple with full range of motion. No jugular venous distension. No lymphadenopathy or thyromegaly. Cardiovascular: Irregularly irregular with no murmurs, rubs, or gallops appreciated Pulmonary: Lungs clear to auscultation bilaterally. Normal respiratory effort with no use of accessory muscles. Abdomen: Bowel tones present. Soft, nontender, nondistended. No hepatosplenomegaly or masses appreciated. Extremities: Dressing intact on the posterior lower leg with quarter size spot of dried blood. No clubbing, cyanosis, edema, or lymphadenopathy appreciated. Skin: Normal temperature, turgor, and texture; no rash, ulcers, or subcutaneous nodules appreciated. Neurological: Cranial nerves grossly intact. Moves all 4 extremities spontaneously. Psychiatric: Normal mood and affect. Alert and oriented to person, place, and time. Test 01/25/17 04:40 01/25/17 06:20 01/25/17 08:00 01/26/17 06:15 D-Dimer < 0.5mg/L (<0.50) Uric Acid 7.3mg/dL (2.6-7.2) Total Creatine Kinase 36U/L (21-215) Creatine Kinase MB 1.4ng/mL (0.0-5.3) Creatine Kinase MB % % (0.0-5.0) Pro-B-Type Natriuretic Peptide 1517pg/mL (0-738) Digoxin Level 0.8nG/mL (0.9-2.0) Lactic Acid Level 1.7mmol/L (0.4-2.0) Urine Legionella pneumophilia Ag Negative (Negative) Hemoglobin A1c 6.5% (4.8-5.6) Test 01/27/17 05:45 01/28/17 01:00 01/28/17 02:39 01/28/17 05:05 Procalcitonin 0.07ng/mL (0.00-0.08) Magnesium Level 2.1mg/dL (1.6-2.6) Troponin T 0.010ug/L (0.0-0.011) Urine Color Straw (YELLOW) Urine Appearance Clear (CLEAR,HAZY) Urine pH 5.5 (5.0-8.0) Urine Specific [place] 1.015 (1.003-1.035) Urine Protein Negativemg/dL (NEG,TRACE) Urine Glucose (UA) 100mg/dL (NEGATIVE) Urine Ketones Negativemg/dL (NEGATIVE) Urine Occult Blood Negative (NEGATIVE) Urine Nitrite Negative (NEGATIVE) Urine Bilirubin Negative (NEGATIVE) Urine Urobilinogen Normalmg/dL (NORMAL) Urine Leukocyte Esterase Negative (NEGATIVE) Urine RBC 0-2/hpf (0-2) Urine WBC 0-5/hpf (0-5) Urine Epithelial Cells Occasional/hpf (NONE-MOD) Urine Crystals None seen (NONE SEEN) Urine Bacteria None/hpf (NONE-FEW) Urine Hyaline Casts None/lpf (NONE) Urine Granular Casts None seen (NONE SEEN) Urine Waxy Casts None seen (NONE SEEN) Urine Red Blood Cell Casts None seen (NONE SEEN) Urine White Blood Cell Casts None seen (NONE SEEN) Urine Mucus None seen (None Seen) Urine Trichomonas None seen (NONE SEEN) Urine Yeast None (NONE SEEN) Urine Culture Reflexed Not indicated White Blood Count 13.5th/mm3 (3.8-10.1) Red Blood Count 4.09mil/mm3 (3.90-5.20) Hemoglobin 12.6g/dL (12.0-15.6) Hematocrit 38.1% (35.0-46.0) Mean Corpuscular Volume 93.2fL (81-100) Mean Corpuscular Hemoglobin 30.8pg (27.0-35.0) Mean Corpuscular Hemoglobin Concent 33.1% (32.0-37.0) Red Cell Distribution Width 12.0% (12.3-15.4) Platelet Count 285bil/L (150-400) Neutrophils (%) (Auto) 89.5% (40-74) Lymphocytes (%) (Auto) 3.0% (14-46) Monocytes (%) (Auto) 7.1% (4-12) Eosinophils (%) (Auto) 0.1% (0-5) Basophils (%) (Auto) 0.1% (0-3) Sodium Level 139mEq/L (134-144) Potassium Level 5.0mEq/L (3.5-5.2) Chloride Level 94mEq/L (97-108) Carbon Dioxide Level 31mmol/L (18-29) Blood Urea Nitrogen 20mg/dL (8-27) Creatinine 0.54mg/dL (0.57-1.00) Estimat Glomerular Filtration Rate 153mL/min (>59) Glucose Level 244mg/dL (60-99) Calcium Level 9.7mg/dL (8.5-10.1) Total Bilirubin 0.5mg/dL (0.0-1.2) Aspartate Amino Transf (AST/SGOT) 19U/L (0-50) Alanine Aminotransferase (ALT/SGPT) 12U/L (0-32) Alkaline Phosphatase 58U/L (25-165) Total Protein 7.3g/dL (6.4-8.4) Albumin 3.6g/dL (3.4-5.0) Microbiology Results Blood culture showed no growth at 2 days, strep pneumonia urine antigen negative , viral respiratory PCR panel negative, MRSA nasal screen negative Discharge Medications Discharge Medications Ascorbic Acid (Vitamin C) 500 Mg Capsule.er 500 MG PO DAILY (Reported) Aspirin (Aspirin) 81 Mg Tablet 81 MG PO DAILY (Reported) Atorvastatin Calcium (Atorvastatin Calcium) 40 Mg Tablet 40 MG PO DAILY ( Reported) Carvedilol (Carvedilol) 12.5 Mg Tablet 12.5 MG PO BID (Reported) Cyclosporine (Restasis) 1 Each Droperette 1 DROP BOTH_EYES BID (Reported) Dabigatran Etexilate Mesylate (Pradaxa) 150 Mg Capsule 150 MG PO BID (Reported) Digoxin (Digoxin) 125 Mcg Tablet 125 MCG PO DAILY (Reported) Ferrous Sulfate (Ferrous Sulfate) 324 Mg Tablet.dr 324 MG PO DAILYWD (Reported) Furosemide (Lasix) 40 Mg Tablet 40 MG PO DAILY (Reported) Glipizide (Glipizide) 5 Mg Tablet 5 MG PO BID (Reported) Insulin Human Lispro (HumaLOG U100 Insulin Vial) 100 Unit/Ml Unit 0 UNIT SUBQ WMHS Check blood sugars before meals and at bedtime. Use correction factor only before meals. Blood Sugar Lispro Correction: <151, 0 units; 151-175, 1 unit; 176-200, 2 units; 201-225, 3 units; 226-250, 4 units; 251-275, 5 units; 276-300 , 6 units; 301-325, 7 units; 326-350, 8 units; 351-375, 9 units; 376-400, 10 units; >400, 12 units. Prescribed by: KESHAV RUIZ DO Lisinopril (Lisinopril) 20 Mg Tablet 20 MG PO BID (Reported) Magnesium Oxide (Magnesium Oxide) 400 Mg Tablet 800 MG PO BID (Reported) Metformin (Metformin) 500 Mg Tablet 1,000 TABLET PO BID (Reported) Omeprazole (Omeprazole) 20 Mg Capsule.dr 20 MG PO BID (Reported) Spironolactone (Spironolactone) 25 Mg Tablet 12.5 MG PO DAILY (Reported) As needed Acetaminophen (Acetaminophen) 500 Mg Tablet 500-1,000 MG PO Q6 PRN PRN For Pain (Reported) Loperamide HCl (Anti-Diarrheal) 2 Mg Tablet 2-4 MG PO PRN PRN PRN For Diarrhea or Loose Stool (Reported) Followup Plan Disposition: Patient discharged in stable condition to [facility] Follow-up plan Please follow up with your PCP in about a week. Please follow up with Dr. Santana as soon as you can. There has been only one change to your medications. We added sliding scale insulin to your normal regiment. If you blood sugar is better controlled soon you may be able to stop the insulin. Please take the 40 mg of Lasix daily. Discharge Diet: Low fat, Low Sodium Discharge Activity: No restrictions Patient Instructions Weight Monitoring 1. Weigh yourself every day at the same time and write it down. 2. Take your weight log to your doctor visits. 3. Call your doctor if you gain 3-5 pounds over 2-3 days. 4. Your weight today is 135.14 lbs. Follow-up Provider: Eamon Magallanes MD Follow-up with PCP in: 1 week Provider: Navjot Santana MD Time spent 35 minutes Attending Statement The patient was seen and examined together with Dr. Maldonado on 01/28/2017 and I agree with the history, exam and plan as outlined in the note above. copies to: Eamon Magallanes MD; Navjot Santana MD, Erika R DO Jan 28, 2017 17:34 Matthew Coburn MD Jan 29, 2017 11:42
== END 2017-01-28 12:45 | DRG 292 ==
LOC: EDBD 03:58 → SED 03:58 → MPC 06:41
PROVIDERS: ADMIT Internal Medicine; ATTEND Internal Medicine
PROC: 0HDKXZZ Extraction of Right Lower Leg Skin, External Approach (ICD-10-PCS; principal; 2017-01-25)
DX: I50.33 Acute on chronic diastolic (congestive) heart failure (principal); G91.2 (Idiopathic) normal pressure hydrocephalus; J44.9 Chronic obstructive pulmonary disease, unspecified; I25.10 Atherosclerotic heart disease of native coronary artery without angina pectoris; R32 Unspecified urinary incontinence; E11.65 Type 2 diabetes mellitus with hyperglycemia; I48.2 Chronic atrial fibrillation; Z66 Do not resuscitate; E87.5 Hyperkalemia; I51.81 Takotsubo syndrome; M79.661 Pain in right lower leg; Z87.440 Personal history of urinary (tract) infections; Z95.5 Presence of coronary angioplasty implant and graft; Z87.891 Personal history of nicotine dependence; Z79.82 Long term (current) use of aspirin; I25.2 Old myocardial infarction; Z79.01 Long term (current) use of anticoagulants; Z79.4 Long term (current) use of insulin